=== PATIENT | female | born 1940 ===

== ENCOUNTER 2018-12-25 10:02 | Outpatient (CLI) | payer MEDICARE | END 2018-12-25 10:03 | disposition home or self-care (01) | LOC: C.PAT 10:02 | DX: I65.21 Occlusion and stenosis of right carotid artery (principal); I65.02 Occlusion and stenosis of left vertebral artery ==

== ENCOUNTER 2019-01-20 21:35 | Inpatient (IN) | payer MEDICARE ==
[2019-01-20 21:35] VITALS: BMI 27.3
--- NOTE | 2019-01-20 22:26 | C.PDOC ---
History Of Present Illness 78 year old female with Hx of carotid stenosis, HTN, diabetes, and syncope, sent in by neurologist for evaluation. Patient with Hx of recurrent syncope, recently admitted to another institution where she had an MRA that showed severe stenosis of the r internal carotid. Denies headache, pain, fever, or symptoms at this time. Patient due for procedure, of note patient had negative CT head 1 month ago. Time Seen by Provider: 01/20/19 21:55 Chief Complaint (Nursing): Weakness/Neurological Deficit History Per: Patient History/Exam Limitations: no limitations Onset/Duration Of Symptoms: Days Current Symptoms Are (Timing): Still Present Seizure Or Post-ictal Symptoms: None Recent travel outside of the [place]: No Past Medical History Reviewed: Historical Data, Nursing Documentation, Vital Signs Vital Signs: Last Vital Signs Temp 97.4 F L 01/20/19 21:45 Pulse 74 01/20/19 21:45 Resp 18 01/20/19 21:45 BP 183/80 H 01/20/19 21:45 Pulse Ox 100 01/20/19 21:45 - Medical History PMH: CAD, Diabetes, HTN, Hypercholesterolemia Denies: Chronic Kidney Disease Surgical History: CABG, Cholecystectomy - [facility] Procedures MEASURE OF CARDIAC SAMPL & PRESSURE, L HEART, PERC APPROACH (01/14/17) PLAIN RADIOGRAPHY OF RIGHT AND LEFT HEART USING OTH CONTRAST (01/14/17) Family History: States: Unknown Family Hx - Social History Hx Alcohol Use: No Hx Substance Use: No Review Of Systems Constitutional: Negative for: Fever, Chills Cardiovascular: Negative for: Chest Pain, Palpitations Respiratory: Negative for: Cough, Shortness of Breath Gastrointestinal: Negative for: Nausea, Vomiting Neurological: Negative for: Weakness, Numbness, Headache, Dizziness Physical Exam - Physical Exam Appears: Non-toxic Skin: Normal Color, Warm, Dry Head: Atraumatic, Normacephalic Eye(s): bilateral: Normal Inspection, PERRL, EOMI Oral Mucosa: Moist Neck: Normal, Supple Chest: Symmetrical, No Tenderness Cardiovascular: Rhythm Regular Respiratory: Normal Breath Sounds, No Rales, No Rhonchi, No Wheezing Gastrointestinal/Abdominal: Soft, No Tenderness Extremity: Normal ROM (x4) Neurological/Psych: Oriented x3, Normal Speech, Normal Cranial Nerves, Normal Motor, Normal Sensation, Other (No focal deficit) ED Course And Treatment - Laboratory Results Result Diagrams: 01/20/19 22:31 01/20/19 22:31 O2 Sat by Pulse Oximetry: 100 (Room air) Pulse Ox Interpretation: Normal Medical Decision Making Medical Decision Making: reccuent syncope 2/2 ica stenosis- labs imaging pending previous ct neg. case disucssed with Dr. Miller who requests MRI and admission. ekg nsr [address] t wave changes accepted dr davenport. Disposition - Disposition Disposition: HOSPITALIZED Disposition Time: 23:00 Condition: STABLE - Clinical Impression Clinical Impression: Dizziness - Scribe Statement The provider has reviewed the documentation as recorded by the Scribe Zacarias Herrmann All medical record entries made by the Scribe were at my direction and personally dictated by me. I have reviewed the chart and agree that the record accurately reflects my personal performance of the history, physical exam, medical decision making, and the department course for this patient. I have also personally directed, reviewed, and agree with the discharge instructions and disposition. Decision To Admit - Pt Status Changed To: Hospital Disposition Of: Inpatient - Admit Certification Admit to Inpatient:: After my assessment, the patient will require hospitalization for at least two midnights. This is because of the severity of symptoms shown, intensity of services needed, and/or the medical risk in this patient being treated as an outpatient. - InPatient: Physician Admission Certification: I certify that this patient requires 2 or more midnights of care for the following reason:: need mri neuro evla - . Bed Request Type: Telemetry Admitting Physician: [place] Patient Diagnosis: Syncope
[2019-01-20 22:35] LABS: BASO % 0.7 % (0.0-2.0); EOS # 0.3 K/uL (0.0-0.7); EOS % 3.6 % (0.0-4.0); HEMOGLOBIN 11.7 g/dL (11.0-16.0); LYMPH # 1.5 K/uL (1.0-4.3); LYMPH % 21.3 % (20.0-40.0); MEAN CELL VOLUME 88.7 fL (81.0-99.0); MEAN CORPUSCULAR HEMOGLOBIN 29.2 pg (27.0-31.0); MEAN CORPUSCULAR HGB CONC 32.9 g/dL (33.0-37.0); MONO # 0.3 K/uL (0.0-0.8); MONO % 4.8 % (0.0-10.0); NEUT # 5.1 K/uL (1.8-7.0); NEUT % 69.6 % (50.0-75.0); RBC 4.01 Mil/uL (3.80-5.20); RED CELL DISTRIBUTION WIDTH 13.8 % (11.5-14.5); WHITE BLOOD COUNT 7.3 K/uL (4.8-10.8)
[2019-01-20 22:43] LABS: PROTHROMBIN TIME 11.3 SECONDS (9.7-12.2)
[2019-01-20 22:47] LABS: ALB/GLOB RATIO 1.9 (1.0-2.1); ALBUMIN 4.6 g/dL (3.5-5.0); ALT/SGPT 31 U/L (9-52); AST/SGOT 25 U/L (14-36); BLOOD UREA NITROGEN 26 mg/dL (7-17); CALCIUM 10.3 mg/dl (8.6-10.4); GFR NON-AFRICAN AMERICAN 43
[2019-01-21] MEDS: (Novolog) Insulin Aspart, Recombinant 100 u/ml 10 ml vial SC SCH ×5 (00:05→22:21)
[2019-01-21 00:28] LABS: SQUAMOUS EPITHIAL < 1 /hpf (0-5); URINE BILIRUBIN NEGATIVE (NEGATIVE); URINE BLOOD NEGATIVE (NEGATIVE); URINE CLARITY Clear (Clear); URINE COLOR Yellow (YELLOW); URINE GLUCOSE (UA) NORMAL (Normal); URINE LEUKOCYTE ESTERASE TRACE Leu/uL (Negative); URINE PROTEIN NEGATIVE (NEGATIVE); URINE UROBILINOGEN NORMAL mg/dL (0.2-1.0)
--- NOTE | 2019-01-21 09:30 | RAD ---
Chest x-ray single frontal view History: Chest pain. Comparison 12/25/2018 Findings: Mild venous congestion. Right hilar prominence. Status post median sternotomy and CABG. Atherosclerotic calcification at the aortic knob. Heart size within normal limits. Degenerative changes in the spine and shoulders. Impression: Mild venous congestion. Right hilar prominence. Status post median sternotomy and CABG. Atherosclerotic calcification at the aortic knob.
[2019-01-21] MEDS ORDERED: Home Med 1 UNIT (Pravastatin Sodium [Pravastatin Sodium] 40 MG) PO SCH (10:00)
[2019-01-21] MEDS ORDERED: Home Med 1 UNIT (Metformin [Glucophage] 1,000 MG) PO SCH (10:00)
[2019-01-21] MEDS ORDERED: Gadodiamide 287 MG/ML VIAL (15ML) IV ONE (11:15)
[2019-01-21] MEDS: Enoxaparin 40 mg Syringe SC SCH (11:37)
--- NOTE | 2019-01-21 12:01 | CARD ---
APPROVED REPORT Date of service: 01/20/2019 EKG Measurement Heart [id number] <Conclusion> Normal sinus rhythm Possible Left atrial enlargement Incomplete right bundle branch block Possible Inferior infarct, age undetermined Abnormal ECG
--- NOTE | 2019-01-21 13:13 | MRI ---
Date of service: 01/21/2019 PROCEDURE: MRI BRAIN WITH AND WITHOUT CONTRAST HISTORY: Syncope COMPARISON: None available. TECHNIQUE: Multiplanar, multisequence MR images of the brain were obtained with and without intravenous contrast enhancement. 10 ml Omniscan was injected intravenously. FINDINGS: HEMORRHAGE: None DWI: No evidence of an acute or early subacute infarction. BRAIN PARENCHYMA: There are mild chronic microangiopathic changes. There is no mass, mass effect or abnormal extra-axial fluid collection. There is no territorial infarction. There is an empty sella. The midline sagittal structures are normal. ENHANCEMENT: No abnormal intracranial enhancement. VENTRICLES: There is mild age-related global parenchymal volume loss and proportionate enlargement of the ventricles and cortical sulci. CRANIUM: There is normal bone marrow signal pattern. ORBITS: Grossly unremarkable. PARANASAL SINUSES/MASTOIDS: Mild mucosal thickening in the paranasal sinuses and trace mastoid effusions. VASCULAR SYSTEM: There are normal signal voids in the larger intracranial arteries. OTHER FINDINGS: None . IMPRESSION: 1. No acute intracranial abnormality. 2. Mild chronic microangiopathic changes and mild age-related global parenchymal volume loss.
--- NOTE | 2019-01-21 13:34 | CP.PCM.PN ---
Subjective - Date & Time of Evaluation Date of Evaluation: 01/21/19 Time of Evaluation: 12:00 - Subjective Subjective: [facility] Dr.Farkas Dr.Arcot Dr.Turkell-Parrella Dr.Liff Nazario Consolmao MSNA,AGNP-BC,BUSINESS [employer] REPORT DEVELOPER Mrs.Luisa Arango is a 78 year old female with PmHx.significant for CAD,[place] x2, s/p CABGx4 vessels December 2017, HTN, carotid stenosis, recurrent syncope, diabetes, hypercholesterolemia who presents to the ED for c/o of dizziness, syncopal/near syncope. Pt was admitted to [facility] 12/14/18 for syncope/sever vertigo. the MRI/MRA demonstrated high grade stenosis of the origin of the right internal carotid arteryestimated at 80% using NASCET criteria, mild stenosis of the right M1 middle cerebral artery. On this admission the MRI of the brain does not demonstrate acute infarct. The patient denies dizziness, weakness, numbness or tingling. All symptoms have resolved. Pt was scheduled for carotid artery stent 01/21/19 but the machine was not working, upon notifying the family I was told pt was not feeling well was c/o dizziness and falling asleep while driving. I advised them to go to the ED. is scheduled for FERNANDO 01/22 @12noon. Objective - Vital Signs/Intake and Output Vital Signs (last 24 hours): Temp Pulse Resp BP Pulse Ox 98.3 F 60 20 160/67 H 96 01/21/19 08:57 01/21/19 08:57 01/21/19 08:57 01/21/19 08:57 01/21/19 08:57 - Medications Medications: Current Medications Aspirin (Aspirin Chewable) 81 mg PO DAILY [facility] Last Admin: 01/21/19 12:54 Dose: 81 mg Clonidine HCl (Catapres) 0.1 mg PO DAILY [facility] Last Admin: 01/21/19 11:36 Dose: 0.1 mg Clopidogrel Bisulfate (Plavix) 75 mg PO DAILY [facility] Last Admin: 01/21/19 11:35 Dose: 75 mg Enoxaparin Sodium (Lovenox) 40 mg SC DAILY [facility] Last Admin: 01/21/19 11:37 Dose: 40 mg Ferrous Sulfate (Feosol) 325 mg PO DAILY [facility] Last Admin: 01/21/19 11:38 Dose: 325 mg Glimepiride (Amaryl) 4 mg PO DAILY [facility] Last Admin: 01/21/19 12:54 Dose: 4 mg Home Med (Pravastatin Sodium [Pravastatin Sodium]) 40 mg PO DAILY [facility] Insulin Aspart (Novolog) 0 unit SC ACHS [facility]; Protocol Last Admin: 01/21/19 12:44 Dose: Not Given Isosorbide Mononitrate (Imdur) 60 mg PO DAILY [facility] Last Admin: 01/21/19 11:36 Dose: 60 mg Metformin HCl (Glucophage) [facility] Last Admin: 01/21/19 12:54 Dose: 1,000 mg Torsemide (Demadex) 20 mg PO DAILY [facility] Last Admin: 01/21/19 11:36 Dose: 20 mg - Labs Labs: 01/20/19 22:31 01/20/19 22:31 PT 11.3 SECONDS (9.7-12.2) 01/20/19 22:31 INR 1.0 01/20/19 22:31 APTT 35 SECONDS (21-34) H 01/20/19 22:31 - Constitutional Appears: Well - Head Exam Head Exam: ATRAUMATIC - Eye Exam Eye Exam: EOMI, Normal appearance, PERRL Pupil Exam: NORMAL ACCOMODATION - Neck Exam Neck Exam: Full ROM - Rectal Exam Rectal Exam: Deferred - Neurological Exam Neurological Exam: Alert, Awake, CN II-XII Intact, Oriented x3 Neuro motor strength exam: Left Upper Extremity: 5, Right Upper Extremity: 5, Left Lower Extremity: 5, Right Lower Extremity: 5 - Psychiatric Exam Psychiatric exam: Normal Affect, Normal Mood Assessment and Plan - Assessment and Plan (Free Text) Assessment: NEUROLOGICAL EXAM General: awake,sitting up on side of bed, Mental Status: alert, and orientedto person, place, and time, follows commands, regards on both sides Speech: no dysarthria, speech fluent Cranial Nerves: PERRL, BTT bilaterally, EOMI, no facial asymmetry, tongue mid line Motor: 5/5 left and right upper and lower extremities Sensory: intact bilaterally Coordination: [id number] no dysmetria Gait: deferred is a 78 year old female admitted for syncope/near syncope, dizziness. MRI brain does not demonstrate an acute infarct. 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 Plan: 1. Pt NPO after MN 01/21/19 2. Please increase asprin to 325mg today 3. Please continue Plavix daily 4. Please administer Plavix and aspirin in AM with sip of water. 5. Please consult for cardiac clearance for FERNANDO 01/22/19 6. If we can be of further assistance please contact us 45 minutes spent assessing the pt and creating plan
--- NOTE | 2019-01-21 17:47 | CP.PCM.PCO ---
Physician Communication Note - Physician Communication Note Physician Communication Note: OK with Carotid stenting [facility]
--- NOTE | 2019-01-21 21:17 | CP.PCM.HP ---
Present on Admission - Present on Admission Any Indicators Present on Admission: No Past Patient History - Past Medical History & Family History Past Medical History?: Yes - Past Social History Smoking Status: Never Smoked - CARDIAC Hx Cardiac Disorders: Yes Hx Hypercholesterolemia: Yes Hx Hypertension: Yes - PULMONARY Hx Respiratory Disorders: Yes - NEUROLOGICAL Hx Neurological Disorder: Yes Hx Syncope: Yes - HEENT Hx HEENT Problems: No - RENAL Hx Chronic Kidney Disease: No - ENDOCRINE/METABOLIC Hx Diabetes Mellitus Type 2: Yes - HEMATOLOGICAL/ONCOLOGICAL Hx Blood Disorders: No - INTEGUMENTARY Hx Dermatological Problems: No - MUSCULOSKELETAL/RHEUMATOLOGICAL Hx Falls: No - GASTROINTESTINAL Hx Gastrointestinal Disorders: No - GENITOURINARY/GYNECOLOGICAL Hx Genitourinary Disorders: No - PSYCHIATRIC Hx Substance Use: No - SURGICAL HISTORY Hx Cholecystectomy: Yes Hx Coronary Artery Bypass Graft: Yes - ANESTHESIA Hx Anesthesia: Yes Hx Anesthesia Reactions: No Meds Allergies/Adverse Reactions: Allergies Allergy/AdvReac Type Severity Reaction Status Date / Time iodine Allergy Intermediate RASH Verified 01/20/19 21:49 Results - Vital Signs Recent Vital Signs: Last Vital Signs Temp 97.9 F 01/21/19 15:00 Pulse 64 01/21/19 17:30 Resp 20 01/21/19 15:00 BP 130/69 01/21/19 15:00 Pulse Ox 96 01/21/19 15:00 - Labs Result Diagrams: 01/20/19 22:31 01/20/19 22:31 Labs: Laboratory Results - last 24 hr 01/20/19 01/20/19 01/20/19 22:31 22:31 22:31 WBC 7.3 RBC 4.01 Hgb 11.7 Hct 35.5 MCV 88.7 MCH 29.2 MCHC 32.9 L RDW 13.8 Plt Count 238 MPV 8.0 Neut % (Auto) 69.6 Lymph % (Auto) 21.3 Richardson % (Auto) 4.8 Eos % (Auto) 3.6 Baso % (Auto) 0.7 Neut # (Auto) 5.1 Lymph # (Auto) 1.5 Richardson # (Auto) 0.3 Eos # (Auto) 0.3 Baso # (Auto) 0.0 PT 11.3 INR 1.0 APTT 35 H Sodium 137 Potassium 3.7 Chloride 95 L Carbon Dioxide 30 Anion Gap 15 BUN 26 H Creatinine 1.2 Est GFR ( Amer) 53 Est GFR (Non-Af Amer) 43 POC Glucose (mg/dL) Random Glucose 141 H Calcium 10.3 Total Bilirubin 0.5 AST 25 ALT 31 Alkaline Phosphatase 65 Troponin I < 0.0120 Total Protein 7.0 Albumin 4.6 Globulin 2.4 Albumin/Globulin Ratio 1.9 Urine Color Urine Clarity Urine pH Ur Specific Lyndon Urine Protein Urine Glucose (UA) Urine Ketones Urine Blood Urine Nitrate Urine Bilirubin Urine Urobilinogen Ur Leukocyte Esterase Urine WBC (Auto) Urine RBC (Auto) Ur Squamous Epith Cells Hyaline Casts 01/21/19 01/21/19 00:16 17:05 WBC RBC Hgb Hct MCV MCH MCHC RDW Plt Count MPV Neut % (Auto) Lymph % (Auto) Richardson % (Auto) Eos % (Auto) Baso % (Auto) Neut # (Auto) Lymph # (Auto) Richardson # (Auto) Eos # (Auto) Baso # (Auto) PT INR APTT Sodium Potassium Chloride Carbon Dioxide Anion Gap BUN Creatinine Est GFR ( Amer) Est GFR (Non-Af Amer) POC Glucose (mg/dL) 163 H Random Glucose Calcium Total Bilirubin AST ALT Alkaline Phosphatase Troponin I Total Protein Albumin Globulin Albumin/Globulin Ratio Urine Color Yellow Urine Clarity Clear Urine pH 5.0 Ur Specific Lyndon 1.005 Urine Protein Negative Urine Glucose (UA) Normal Urine Ketones Negative Urine Blood Negative Urine Nitrate Negative Urine Bilirubin Negative Urine Urobilinogen Normal Ur Leukocyte Esterase Trace Urine WBC (Auto) 1 Urine RBC (Auto) < 1 Ur Squamous Epith Cells < 1 Hyaline Casts 6-10 H
--- NOTE | 2019-01-21 21:27 | CP.PCM.CON ---
History of Present Illness - History of Present Illness History of Present Illness: 78 year old female with Hx of carotid stenosis, HTN, diabetes, and syncope, sent in by neurologist for evaluation. Patient with Hx of recurrent syncope, recently admitted to another institution where she had an MRA that showed severe stenosis of the r internal carotid. Denies headache, pain, fever, or symptoms at this time. Patient due for procedure, of note patient had negative CT head 1 month ago. She had 2 spells of Syncope, losing consciousness while on the couch and waking up after few hours. She doesn't really know what happens during this period and as she does not share her bedroom, there are no witnesses. Her tests showed ICA stenosis and she will have a surgery in the Morning. Impression of the MRI Brain is showing; IMPRESSION of MRI Brain: 1. No acute intracranial abnormality. 2. Mild chronic microangiopathic changes and mild age-related global parenchymal volume loss. Time Seen by Provider: 01/20/19 21:55 Chief Complaint (Nursing): Weakness/Neurological Deficit History Per: Patient History/Exam Limitations: no limitations Onset/Duration Of Symptoms: Days Current Symptoms Are (Timing): Still Present Seizure Or Post-ictal Symptoms: None Recent travel outside of the [place]: No Social: She is a and has 2 children, one in [place] and the other lives with her in the same building next door. Both of her children are males and are . She is very active and works in [employer] in [facility], in the [employer] department. She starts taking care of herself every year after the end of the Football Season. Past Medical History Reviewed: Historical Data, Nursing Documentation, Vital Signs Vital Signs: Last Vital Signs Temp 97.4 F L 01/20/19 21:45 Pulse 74 01/20/19 21:45 Resp 18 01/20/19 21:45 BP 183/80 H 01/20/19 21:45 Pulse Ox 100 01/20/19 21:45 - Medical History PMH: CAD, Diabetes, HTN, Hypercholesterolemia Denies: Chronic Kidney Disease Surgical History: 4 vessels CABG at [facility] in [facility], she has a history of having 2 cardiac stents in the past, prior to her CABG Surgery. The vein was taken from her left Upper Extremity. Cholecystectomy - [facility] Procedures. MEASURE OF CARDIAC SAMPL & PRESSURE, L HEART, PERC APPROACH (01/14/17) PLAIN RADIOGRAPHY OF RIGHT AND LEFT HEART USING OTH CONTRAST (01/14/17) Family History: States: Unknown Family Hx - Social History Hx Alcohol Use: No Hx Substance Use: No Review Of Systems Constitutional: Negative for: Fever, Chills Cardiovascular: Negative for: Chest Pain, Palpitations Respiratory: Negative for: Cough, Shortness of Breath Gastrointestinal: Negative for: Nausea, Vomiting Neurological: Negative for: Weakness, Numbness, Headache, Dizziness Physical Exam - Physical Exam Appears: Non-toxic Skin: Normal Color, Warm, Dry Head: Atraumatic, Normacephalic Eye(s): bilateral: Normal Inspection, PERRL, EOMI Oral Mucosa: Moist Neck: Normal, Supple Chest: Symmetrical, No Tenderness Cardiovascular: Rhythm Regular Respiratory: Normal Breath Sounds, No Rales, No Rhonchi, No Wheezing Gastrointestinal/Abdominal: Soft, No Tenderness Extremity: Normal ROM (x4) Neurological/Psych: Oriented x3, Normal Speech, Normal Cranial Nerves, Normal Motor, Normal Sensation, Other (No focal deficit) ED Course And Treatment - Laboratory Results Result Diagrams: 01/20/19 22:31 01/20/19 22:31 O2 Sat by Pulse Oximetry: 100 (Room air) Pulse Ox Interpretation: Normal Medical Decision Making Medical Decision Making: reccuent syncope 2/2 ica stenosis- labs imaging pending previous ct neg. case disucssed with Dr. Miller, her neurologist in [facility], who requests MRI and admission. ekg nsr [address] t wave changes accepted dr cat. Disposition - Disposition Disposition: HOSPITALIZED Disposition Time: 23:00 Condition: STABLE - Clinical Impression Clinical Impression: Dizziness, bifrontal headache, throbbing, with photophobia, sonophobia, occurr ing few hours a day, most of the week. She has a history of snoring at night when sleeping and wakes up tired. R/O Seizures, R/O sleep Apnea. Past Patient History - Past Medical History & Family History Past Medical History?: Yes - Past Social History Smoking Status: Never Smoked - CARDIAC Hx Cardiac Disorders: Yes Hx Hypercholesterolemia: Yes Hx Hypertension: Yes - PULMONARY Hx Respiratory Disorders: Yes - NEUROLOGICAL Hx Neurological Disorder: Yes Hx Syncope: Yes - HEENT Hx HEENT Problems: No - RENAL Hx Chronic Kidney Disease: No - ENDOCRINE/METABOLIC Hx Diabetes Mellitus Type 2: Yes - HEMATOLOGICAL/ONCOLOGICAL Hx Blood Disorders: No - INTEGUMENTARY Hx Dermatological Problems: No - MUSCULOSKELETAL/RHEUMATOLOGICAL Hx Falls: No - GASTROINTESTINAL Hx Gastrointestinal Disorders: No - GENITOURINARY/GYNECOLOGICAL Hx Genitourinary Disorders: No - PSYCHIATRIC Hx Substance Use: No - SURGICAL HISTORY Hx Cholecystectomy: Yes Hx Coronary Artery Bypass Graft: Yes - ANESTHESIA Hx Anesthesia: Yes Hx Anesthesia Reactions: No Meds Allergies/Adverse Reactions: Allergies Allergy/AdvReac Type Severity Reaction Status Date / Time iodine Allergy Intermediate RASH Verified 01/20/19 21:49 - Medications Medications: Current Medications Aspirin (Aspirin) 325 mg PO DAILY [facility] Clopidogrel Bisulfate (Plavix) 75 mg PO DAILY [facility] Last Admin: 01/21/19 11:35 Dose: 75 mg Enoxaparin Sodium (Lovenox) 40 mg SC DAILY [facility] Last Admin: 01/21/19 11:37 Dose: 40 mg Ferrous Sulfate (Feosol) 325 mg PO DAILY [facility] Last Admin: 01/21/19 11:38 Dose: 325 mg Glimepiride (Amaryl) 4 mg PO DAILY [facility] Last Admin: 01/21/19 12:54 Dose: 4 mg Insulin Aspart (Novolog) 0 unit SC [facility]; Protocol Last Admin: 01/21/19 18:04 Dose: 1 u Isosorbide Mononitrate (Imdur) 60 mg PO DAILY [facility] Last Admin: 01/21/19 11:36 Dose: 60 mg Losartan Potassium (Cozaar) 25 mg PO DAILY [facility] Last Admin: 01/21/19 14:54 Dose: 25 mg [facility] Last Admin: 01/21/19 18:06 Dose: Not Given Rosuvastatin Calcium (Crestor) 5 mg PO [facility] Torsemide (Demadex) 20 mg PO DAILY [facility] Last Admin: 01/21/19 11:36 Dose: 20 mg Physical Exam - Neurological Exam Additional comments: Mental status: Awake, alert, oriented X 3 Fluent coherent speech Normal Memory x 3 Very smart and has a sense of humor. Cranial Nerves II to XII: No Deficits Motor: Normal tone power and muscle bulk DTR: 0/4 bilaterally Cerebellar: Normal tests: FNT, HST and is able to walk properly, tandem walking is hard to perform, apparently due her diabetic peripheral neuropathy. Sensory: Reduced sensation peripherally in a glove and stoke pattern in both Upper and Lower extremities, this looks due to D.M tature and gait Normal. Results - Vital Signs Recent Vital Signs: Last Vital Signs Temp 97.9 F 01/21/19 15:00 Pulse 64 01/21/19 17:30 Resp 20 01/21/19 15:00 BP 130/69 01/21/19 15:00 Pulse Ox 96 01/21/19 15:00 - Labs Result Diagrams: 01/20/19 22:31 01/20/19 22:31 Labs: Laboratory Results - last 24 hr 01/20/19 01/20/19 01/20/19 22:31 22:31 22:31 WBC 7.3 RBC 4.01 Hgb 11.7 Hct 35.5 MCV 88.7 MCH 29.2 MCHC 32.9 L RDW 13.8 Plt Count 238 MPV 8.0 Neut % (Auto) 69.6 Lymph % (Auto) 21.3 [place] % (Auto) 4.8 Eos % (Auto) 3.6 Baso % (Auto) 0.7 Neut # (Auto) 5.1 Lymph # (Auto) 1.5 [place] # (Auto) 0.3 Eos # (Auto) 0.3 Baso # (Auto) 0.0 PT 11.3 INR 1.0 APTT 35 H Sodium 137 Potassium 3.7 Chloride 95 L Carbon Dioxide 30 Anion Gap 15 BUN 26 H Creatinine 1.2 Est GFR ( Amer) 53 Est GFR (Non-Af Amer) 43 POC Glucose (mg/dL) Random Glucose 141 H Calcium 10.3 Total Bilirubin 0.5 AST 25 ALT 31 Alkaline Phosphatase 65 Troponin I < 0.0120 Total Protein 7.0 Albumin 4.6 Globulin 2.4 Albumin/Globulin Ratio 1.9 Urine Color Urine Clarity Urine pH Ur Specific [place] Urine Protein Urine Glucose (UA) Urine Ketones Urine Blood Urine Nitrate Urine Bilirubin Urine Urobilinogen Ur Leukocyte Esterase Urine WBC (Auto) Urine RBC (Auto) Ur Squamous Epith Cells Hyaline Casts 01/21/19 01/21/19 00:16 17:05 WBC RBC Hgb Hct MCV MCH MCHC RDW Plt Count MPV Neut % (Auto) Lymph % (Auto) [place] % (Auto) Eos % (Auto) Baso % (Auto) Neut # (Auto) Lymph # (Auto) [place] # (Auto) Eos # (Auto) Baso # (Auto) PT INR APTT Sodium Potassium Chloride Carbon Dioxide Anion Gap BUN Creatinine Est GFR ( Amer) Est GFR (Non-Af Amer) POC Glucose (mg/dL) 163 H Random Glucose Calcium Total Bilirubin AST ALT Alkaline Phosphatase Troponin I Total Protein Albumin Globulin Albumin/Globulin Ratio Urine Color Yellow Urine Clarity Clear Urine pH 5.0 Ur Specific [place] 1.005 Urine Protein Negative Urine Glucose (UA) Normal Urine Ketones Negative Urine Blood Negative Urine Nitrate Negative Urine Bilirubin Negative Urine Urobilinogen Normal Ur Leukocyte Esterase Trace Urine WBC (Auto) 1 Urine RBC (Auto) < 1 Ur Squamous Epith Cells < 1 Hyaline Casts 6-10 H Assessment & Plan (1) Syncope Assessment and Plan: R/O seizures, R/O TIA, R/o carotid stenosis as a factor. Will Get EEG to assess for seizures. MRI Brain is not showing CVA or serious Intracranial findings that can threaten her life. Status: Acute (2) Carotid stenosis, right Assessment and Plan: She will have a procedure in AM Status: Acute (3) Chest pain Assessment and Plan: Cardiology is ruling out any cardiac causes. Status: Acute (4) DVT prophylaxis Status: Acute (5) Lower extremity pain Assessment and Plan: Right side carotid artery stenosis. LS Radiculopathy is to be ruled out. Work up as MRI of the Lumbar Sacral area will be performed later on, may be as an out patient. Status: Acute (6) Non-STEMI (non-ST elevated myocardial infarction) Status: Acute (7) Peripheral arterial disease Assessment and Plan: Work Up is in progress. Status: Acute (8) Prophylactic measure Status: Acute (9) Seizures Assessment and Plan: It needs to be ruled out by an EEG and observation. Status: Acute (10) TIA (transient ischemic attack) Assessment and Plan: Factors are D.M , high lipid profile, cardiac problems including CABG, Cardiac ischemia, h/o coronary artery stents, Right side Carotid Artery stenosis Observation is needed and F/U Cardiac consult. Status: Acute (11) Hypnic headache Assessment and Plan: This might be due to snoring at night time due to possible sleep apnea A sleep study is recommended after discharge. Status: Acute
--- NOTE | 2019-01-22 03:43 | CON ---
DATE: 01/21/2019 CARDIOLOGY CONSULT REASON FOR CONSULTATION: Preoperative clearance prior to carotid artery stenting. HISTORY OF PRESENT ILLNESS: The patient is a 78-year-old female who has history of coronary artery disease, underwent coronary artery bypass surgery 2 years ago at [facility], known to have significant carotid stenosis and was given clearance by her expanded duty dental assistant, Dr. Hardy for carotid stenting. The patient was admitted because of weakness and what was described as neurological deficit. The patient herself reported headache, dizziness as well as at times difficulty articulating her speech. The patient denies any retrosternal chest pain or shortness of breath, and is unaware of any history of coronary intervention following her open heart surgery 2 years ago. SOCIAL HISTORY: Nonsmoker, nondrinker. MEDICATIONS: Amaryl 4 mg once a day, aspirin 325 mg once a day, Cozaar 25 mg once a day, Crestor 5 mg once a day, Demadex 20 mg once a day, Feosol 1 tablet daily, Glucophage 1 g twice a day, Imdur 60 mg once a day, Lovenox 40 mg subcutaneous once a day, and Plavix 75 mg once a day. REVIEW OF SYSTEMS: No syncope. No retrosternal chest pain. No recent fall. No nausea or vomiting. No productive cough. PHYSICAL EXAMINATION: GENERAL: The patient is an elderly female who does not appear to be in acute distress. VITAL SIGNS: Blood pressure 160/67, heart rate 60, temperature 98.3, and respirations 20. HEENT: Normocephalic. CHEST: Clear. HEART: S1 and S2, regular. ABDOMEN: Soft. EXTREMITIES: No edema. LABORATORY DATA: Today's SMA-7: Sodium 137, potassium 3.7, chloride 95, CO2 of 30, glucose 141, BUN 26, creatinine 1.2. Troponin is within normal limits. INR is 1, PTT 35. Hemoglobin, hematocrit, white count, and platelet count are within normal limit. EKG revealed sinus rhythm at a rate of 60, incomplete right bundle branch block, possible old inferior infarct. Echocardiographic study performed last month revealed normal ejection fraction, borderline dilated left atrium, and mild pulmonary hypertension. Brain MRI during this admission revealed no acute intracranial abnormality, mild chronic microangiopathic changes. Neck MRA last month revealed severe stenosis in the proximal right internal carotid artery with poststenotic dilatation. Head MRA last month unremarkable. ASSESSMENT: 1. Severe right internal carotid artery stenosis with poststenotic dilatation. 2. Coronary artery disease, status post coronary artery bypass surgery 2 years ago. 3. Hypertension and diabetes mellitus. RECOMMENDATIONS: Continue aspirin 325 mg once a day, Crestor 5 mg once a day, Cozaar 25 mg once a day, Demadex 20 mg once a day, Feosol 1 tablet daily, Imdur 60 mg once a day, Plavix 75 mg once a day. The patient can undergo carotid artery stenting from the cardiac point of view. Kuldip Vincent MD
--- NOTE | 2019-01-22 05:15 | HP ---
CHIEF COMPLAINT: Weakness and dizziness. HISTORY OF PRESENT ILLNESS: This is a 78-year-old female with history of type 2 diabetes, hypertension, coronary artery disease, status post CABG for four vessels a year ago. The patient was admitted at [facility] last week with a CVA. The patient had an MRA done, and the MRA showed severe stenosis of right internal carotid artery. The patient is still weak, dizzy. She feels like passing out. The patient needs carotid endarterectomy as she is admitted. At the moment, she denies any weakness, tingling or numbness of any of the extremities. She has dizziness, weakness. She has vertigo. She denies any paresthesia, but she has nausea. She has blurring of vision. She denies any fever, chills, or rigors. She denies any polyuria, polydipsia, or polyphagia. She denies any history of hematuria or pyuria. She denies any sneezing, itchy eyes, or itchy nose. She denies any history of trauma, fall, or loss of consciousness. There is no history of seizure-like activity. There is no history of joint pain or hip pain. PAST MEDICAL HISTORY: Coronary artery disease, status post CABG; diabetes; hypertension; hyperlipidemia; cholecystectomy. SOCIAL HISTORY: She is nonsmoker, non-EtOH user. CURRENT MEDICATIONS: Imdur, aspirin, Amaryl, iron sulfate, Plavix, Pravachol, Glucophage, clonidine, and torsemide. PHYSICAL EXAMINATION: GENERAL: This is an elderly female who is not in any acute distress. VITAL SIGNS: Blood pressure 130/69, pulse 62, respiratory rate 20, and temperature 97.9. SKIN: Senile turgor. No bruises. No purpura. No petechiae. No ecchymosis. HEENT: Atraumatic and normocephalic. Negative pallor. Negative jaundice. Extraocular movements are intact. NECK: Supple. No JVD. No lymph nodes. No thyromegaly. CHEST WALL: Bilateral symmetrical expansion. There is a midline scar, clean, healed. No masses. No nipple discharge. CARDIOVASCULAR SYSTEM: PMI not localized. S1 and S2 plus S3 positive. LUNGS: Bilaterally clear. No rales. No rhonchi. Has normal focal crepitus. ABDOMEN: Soft and nontender. Bowel sounds are positive. RECTAL: Refused. PELVIC: Refused. EXTREMITIES: No clubbing, cyanosis, or edema. CENTRAL NERVOUS SYSTEM: Awake, alert, and oriented x3. ASSESSMENT: 1. Right internal carotid artery stenosis, for carotid endarterectomy. 2. Coronary artery disease. 3. Type 2 diabetes. 4. Hypertension. PLAN: Admit. Detailed orders are written. Cardiac evaluation and possible carotid surgery. Monitor the patient. Los Davenport MD
[2019-01-22] MEDS: (Novolog) Insulin Aspart, Recombinant 100 u/ml 10 ml vial SC SCH ×3 (07:42→21:10)
[2019-01-22] MEDS: Nitroglycerin 2% Ointment Foilpak UD TOP SCH ×2 (07:56→17:51)
[2019-01-22 08:00] LABS: HDL CHOLESTEROL 47 mg/dL (30-70)
[2019-01-22 08:12] LABS: LDL CHOLESTEROL 91 mg/dL (0-129)
[2019-01-22 09:12] LABS: FOLATE > 20.0 ng/mL
[2019-01-22] MEDS: Enoxaparin 40 mg Syringe SC SCH (11:05)
[2019-01-22] MEDS ORDERED: Lidocaine/Epinephrine 1% 1:100000 10 ML IJ ONE (11:25)
[2019-01-22] MEDS ORDERED: SODIUM CHLORIDE 0.9% SC ONE ×3 (11:30)
[2019-01-22] MEDS ORDERED: SODIUM CHLORIDE 0.9% IV ONE ×4 (11:30→11:45)
[2019-01-22] MEDS ORDERED: HEPARIN SC ONE ×3 (11:30)
[2019-01-22] MEDS ORDERED: HEPARIN IV ONE ×4 (11:30→11:45)
--- NOTE | 2019-01-22 12:23 | PCM.IRPREO ---
Pre Procedure Note - History Proposed Procedure: Cerebral Angiogram- Endovascular treatment of ASHLEY stenosis with embolic protection device and possible balloon - Previous Medical/Surgical History Cardiac: Hypertension, ASHD/CAD, Previous OR Endocrine/Metabolic: Diabetes Neuro: TIA/CVA - Pre Procedure Were any radiologic studies performed in the last 12 months: Yes List of radiologic studies performed: MRA head/neck; MRI head Was medical management performed in the past 24 months: Yes List of medical management performed: plavix 75mg daily, Aspirin 325 mg daily Clinical indication for the procedure: symptomatic right internal carotid artery stenosis Have risks and benefits been explained to the patient: Yes (Planned procedure, benefits and risks including but not limited to groin infection, arterial occlusion, injury, renal impairment, CVA/brain hemorrhage resulting in irreversible neurological deficits and even were explained to in detail. She agrees to proceed and informed consent was obtained.) Risks and benefits been explained to the patient: yes Have alternatives to surgery explained to the patient as applicable: Yes - Allergies Allergies: Allergies iodine Allergy (Intermediate, Verified 01/20/19 21:49) RASH - Physical Exam Vital Signs: Vital Signs 01/22/19 01/22/19 01/22/19 08:29 10:47 11:06 Temperature 97.8 F Pulse Rate 64 81 75 Respiratory 20 Rate Blood Pressure 206/71 H 199/88 H 166/93 H O2 Sat by Pulse 99 Oximetry Mental Status: Alert & Oriented x3 Neuro: WNL Heart: WNL Lungs: WNL - Impression Impression: 78 year old female with significant risk factors for planned ASHLEY stent. Pt denies headache, dizziness, weakness/numbness to right and left upper and lower extremity - Date & Time Date: 01/22/19 Time: 12:30
[2019-01-22] MEDS ORDERED: Propofol 10 mg/ml Inj (20 ML) ONE (12:28)
[2019-01-22 12:38] LABS: RAPID PLASMA REAGIN NONREACTIVE (NONREACTIVE)
[2019-01-22] MEDS ORDERED: Nitroglycerin 50mg in D5W 50 MG/250 ML BOTTLE IV ONE (13:24)
--- NOTE | 2019-01-22 15:03 | PCM.OP ---
Operative Report - Operative Report Date of Surgery/Procedure: 01/22/19 Time of Surgery/Procedure: 01:50 Surgeon: Dr Mainor Miller Lining Ironer: Bam Talbot Anesthesia/Sedation: MAC by anesthesia Pre-Operative Diagnosis: symptomatic right internal carotid artery stenosis Post-Operative Diagnosis: Right ICA origin stenosis estimated 80% using NASCET criteria Indication for Surgery: repeated near syncopal episodes CTA demonstrating moderate to severe stenosis of the right ICA Operative Findings: right ICA stenosis Procedure/Operation Description: Diagnostic cerebral and cervical angiography right carotid stent placement. Access right groin with micro-puncture technique exchange for 9Fr sheath. Right carotid angioram performed confirming stenosis criteria. Moma device advanced for embolic protection followed by 70x30 carotid stent placement with post stent angioplasty. Groin closed with 8Fr angioseal. Estimated Blood Loss: 250 ml Blood Replaced: none Sponge/Instrument Count: all devices and catheters removed Drains: none right groin closed with 8Fr angioseal Complications: none. neuro assessment normal FULLER 5/5 b/l upper and lower; speech clear; stable throughout Specimen: none Discharge & Condition: Pt transferred to ICU report endorsed to message and delivery service pricer; neuro, neurovascular,VS, right groin(s/p access site) [id number] 0
[2019-01-22] MEDS: niCARdipine IV 25 MG in Sodium Chloride 0.9% 240 ML IV SCH ×2 (15:05→19:23)
[2019-01-22] MEDS ORDERED: Sodium Chloride 0.9% 500 ML IV ONE (16:20)
--- NOTE | 2019-01-22 17:34 | CP.PCM.CON ---
<Edward Welch - Last Filed: 01/22/19 18:48> History of Present Illness - History of Present Illness History of Present Illness: Critical care consult note for Dr. Dana Nichole Consult for s/p R carotid endarterectomy, POD # 0 78 F w/ PMHx of DM, HTN, CAD, s/p CABG (2018) presented to hospital for carotid endarterectomy. Pt had a CVA 1 week prior & MRA revealted severe stenosis of R internal carotid artery. Patient at present time is post op and states she does not have any complaints. Patient denies headaches, visin changes, nausea, vomiting, fevers, chills, chest pain, SOB, abdominal pain, nausea, vomiting, cough. Patient admitted for overnight surveillance. PMHx: DM, HTN, CAD, s/p CABG (2018) Meds: see EMR PSHx: CABG, previous cardiac stent, cholecystitis Allergies: Iodine SHx: denies tobacco, ETOH, illicit drug use FHx: father from [place], mother naturally Review of Systems - Constitutional Constitutional: absent: Chills, Fever, Weight Loss - EENT Eyes: absent: Blurred Vision, Discharge Ears: absent: Decreased Hearing Nose/Mouth/Throat: absent: Nasal Congestion, Dry Mouth - Cardiovascular Cardiovascular: absent: Chest Pain, Chest Pain at Rest, Dyspnea - Respiratory Respiratory: absent: Cough, Dyspnea, Snoring - Gastrointestinal Gastrointestinal: absent: Abdominal Pain, Diarrhea, Vomiting - Genitourinary Genitourinary: absent: Nocturia - Musculoskeletal Musculoskeletal: absent: Muscle Weakness, Stiffness - Integumentary Integumentary: absent: Acne, Lesions - Neurological Neurological: absent: Headaches, Syncope, Tingling - Psychiatric Psychiatric: absent: Confusion, Depression - Endocrine Endocrine: absent: Change in Body Appearance, Deepening of Voice Past Patient History - Past Medical History & Family History Past Medical History?: Yes - Past Social History Smoking Status: Never Smoked - CARDIAC Hx Cardiac Disorders: Yes Hx Hypercholesterolemia: Yes Hx Hypertension: Yes - PULMONARY Hx Respiratory Disorders: Yes - NEUROLOGICAL Hx Neurological Disorder: Yes Hx Syncope: Yes - HEENT Hx HEENT Problems: No - RENAL Hx Chronic Kidney Disease: No - ENDOCRINE/METABOLIC Hx Diabetes Mellitus Type 2: Yes - HEMATOLOGICAL/ONCOLOGICAL Hx Blood Disorders: No - INTEGUMENTARY Hx Dermatological Problems: No - MUSCULOSKELETAL/RHEUMATOLOGICAL Hx Falls: No - GASTROINTESTINAL Hx Gastrointestinal Disorders: No - GENITOURINARY/GYNECOLOGICAL Hx Genitourinary Disorders: No - PSYCHIATRIC Hx Substance Use: No - SURGICAL HISTORY Hx Cholecystectomy: Yes Hx Coronary Artery Bypass Graft: Yes - ANESTHESIA Hx Anesthesia: Yes Hx Anesthesia Reactions: No Meds Allergies/Adverse Reactions: Allergies Allergy/AdvReac Type Severity Reaction Status Date / Time iodine Allergy Intermediate RASH Verified 01/20/19 21:49 - Medications Medications: Current Medications Aspirin (Aspirin) 325 mg PO DAILY [facility] Last Admin: 01/22/19 09:20 Dose: 325 mg Clopidogrel Bisulfate (Plavix) 75 mg PO DAILY [facility] Last Admin: 01/22/19 09:20 Dose: 75 mg Enoxaparin Sodium (Lovenox) 40 mg SC DAILY [facility] Last Admin: 01/22/19 11:05 Dose: Not Given Ferrous Sulfate (Feosol) 325 mg PO DAILY [facility] Last Admin: 01/22/19 11:05 Dose: Not Given Glimepiride (Amaryl) 4 mg PO DAILY [facility] Last Admin: 01/22/19 11:05 Dose: Not Given Nicardipine HCl 25 mg/ Sodium (Chloride) 250 mls @ 50 mls/hr IV .Q5H [facility]; Protocol Last Titration: 01/22/19 16:20 Dose: 0 mg/hr, 0 mls/hr Insulin Aspart (Novolog) 0 unit SC ACHS [facility]; Protocol Last Admin: 01/22/19 17:27 Dose: Not Given Isosorbide Mononitrate (Imdur) 60 mg PO DAILY [facility] Last Admin: 01/22/19 11:05 Dose: Not Given Losartan Potassium (Cozaar) 50 mg PO DAILY [facility] Last Admin: 01/22/19 11:05 Dose: Not Given Metformin HCl (Glucophage) 1,000 mg PO BIDCC [facility] Last Admin: 01/22/19 11:05 Dose: Not Given Nitroglycerin (Nitro-Bid 2% Oint) 1 ea TOP Q6 [facility] Last Admin: 01/22/19 07:56 Dose: 1 ea Rosuvastatin Calcium (Crestor) 5 mg PO HS [facility] Last Admin: 01/21/19 22:23 Dose: 5 mg Torsemide (Demadex) 20 mg PO DAILY [facility] Last Admin: 01/22/19 11:05 Dose: Not Given Physical Exam - Constitutional Appears: Non-toxic, No Acute Distress - Head Exam Head Exam: NORMAL INSPECTION - Eye Exam Eye Exam: EOMI, Normal appearance - ENT Exam ENT Exam: Mucous Membranes Moist - Respiratory Exam Respiratory Exam: Clear to Auscultation Bilateral, NORMAL BREATHING PATTERN. absent: Rales, Rhonchi, Wheezes - Cardiovascular Exam Cardiovascular Exam: +S1, +S2. absent: Systolic Murmur - GI/Abdominal Exam GI & Abdominal Exam: Normal Bowel Sounds, Soft. absent: Firm, Guarding - Extremities Exam Extremities exam: Positive for: normal inspection. Negative for: calf tenderness, pedal edema - Back Exam Back exam: absent: CVA tenderness (L), CVA tenderness (R) - Neurological Exam Neurological exam: Alert, Oriented x3 - Psychiatric Exam Psychiatric exam: Normal Affect, Normal Mood - Skin Skin Exam: Dry, Normal Color, Warm Results - Vital Signs Recent Vital Signs: Last Vital Signs Temp 97.8 F 01/22/19 08:29 Pulse 62 01/22/19 17:05 Resp 12 01/22/19 17:05 BP 106/39 L 01/22/19 17:05 Pulse Ox 99 01/22/19 08:29 - Labs Result Diagrams: 01/20/19 22:31 01/20/19 22:31 Labs: Laboratory Results - last 24 hr 01/21/19 01/21/19 01/21/19 06:42 11:53 21:59 POC Glucose (mg/dL) 140 H 146 H 149 H Hemoglobin A1c Triglycerides Cholesterol LDL Cholesterol Direct HDL Cholesterol Vitamin B12 25-OH Vitamin D Total Folate TSH 3rd Generation RPR 01/22/19 01/22/19 01/22/19 06:18 07:32 07:32 POC Glucose (mg/dL) 115 H Hemoglobin A1c Triglycerides 236 H Cholesterol 165 LDL Cholesterol Direct 91 HDL Cholesterol 47 Vitamin B12 425 25-OH Vitamin D Total Folate > 20.0 TSH 3rd Generation 2.38 RPR Nonreactive 01/22/19 01/22/19 07:32 07:32 POC Glucose (mg/dL) Hemoglobin A1c 7.2 H Triglycerides Cholesterol LDL Cholesterol Direct HDL Cholesterol Vitamin B12 25-OH Vitamin D Total 29.2 L Folate TSH 3rd Generation RPR Assessment & Plan - Assessment and Plan (Free Text) Assessment: 78 F w/ Pmhx of CABG, HTN s/p R carotid endarterectomy POD #0 for occlusion and stenosis of carotid artery. In ICU for overnight monitoring Plan: Neuro - A&O x3 - s/p R endaractomy - goal of SBP 100 to 120 - A-line currently in place Cardio - hx of cardiac stents - continue DAPT - maintain SBP 100-120 - nicardipine drip, titrate as needed Resp - vitals WNL - continue to monitor GI - NPO - heart healthy diet in AM Renal - BUN/Cr WNL - f/u AM labs - voiding freely Endo - hx of type 2 diabetes - accuchecks Q6H - ISS Q6H - hypogylcemia protocol Heme - H/H from stable - F/u CBC - F/u CBC @2130 - WBC WNL; afebrile - Continue to monitor - ferros sulfate daily PPx - DVT: lovenox 40 SC daily, SCDs - GI: pepcid 20 mg daily <Jameel Nichole - Last Filed: 01/23/19 15:01> Meds - Medications Medications: Current Medications Aspirin (Aspirin) 325 mg PO DAILY [facility] Last Admin: 01/23/19 09:32 Dose: 325 mg Clopidogrel Bisulfate (Plavix) 75 mg PO DAILY [facility] Last Admin: 01/23/19 09:33 Dose: 75 mg Dextrose (Dextrose 50% Inj) 0 ml IV STAT PRN; Protocol PRN Reason: Hypoglycemia Protocol Dextrose (Glutose 15) 0 gm PO ONCE PRN; Protocol PRN Reason: Hypoglycemia Protocol Enoxaparin Sodium (Lovenox) 40 mg SC DAILY [facility] Last Admin: 01/23/19 09:32 Dose: 40 mg Ferrous Sulfate (Feosol) 325 mg PO DAILY [facility] Last Admin: 01/23/19 09:32 Dose: 325 mg Glimepiride (Amaryl) 4 mg PO DAILY [facility] Last Admin: 01/23/19 09:32 Dose: 4 mg Glucagon (Glucagen Diagnostic Kit) 0 mg IM STAT PRN; Protocol PRN Reason: Hypoglycemia Protocol Hydralazine HCl (Apresoline) 10 mg IVP Q3H PRN PRN Reason: Systolic Blood Pressure Dextrose (Dextrose 5% In Water 1000 Ml) 1,000 mls @ 0 mls/hr IV .Q0M PRN; Protocol PRN Reason: Hypoglycemia Protocol Insulin Aspart (Novolog) [address] [facility]; Protocol Last Admin: 01/23/19 12:00 Dose: 2 u Isosorbide Mononitrate (Imdur) 60 mg PO DAILY [facility] Last Admin: 01/23/19 09:37 Dose: 60 mg Losartan Potassium (Cozaar) 25 mg PO DAILY [facility] Last Admin: 01/23/19 09:33 Dose: 25 mg Metoprolol Tartrate (Lopressor) 12.5 mg PO BID [facility] Last Admin: 01/23/19 09:33 Dose: 12.5 mg Rosuvastatin Calcium (Crestor) 10 mg PO [facility] Last Admin: 01/22/19 21:32 Dose: Not Given Results - Vital Signs Recent Vital Signs: Last Vital Signs Temp 98 F 01/23/19 12:00 Pulse 78 01/23/19 14:22 Resp 18 01/23/19 14:22 BP 160/77 H 01/23/19 14:00 Pulse Ox 98 01/23/19 14:22 - Labs Result Diagrams: 01/23/19 06:31 01/23/19 06:31 Labs: Laboratory Results - last 24 hr 01/22/19 01/22/19 01/23/19 07:32 19:01 01:27 WBC 4.6 L 6.3 RBC 3.29 L 3.43 L Hgb 9.9 L 10.3 L Hct 28.9 L 30.5 L MCV 87.9 89.1 MCH 30.0 30.0 MCHC 34.1 33.7 RDW 13.5 13.8 Plt Count 227 212 MPV 8.2 7.8 Neut % (Auto) 61.1 70.2 Lymph % (Auto) 30.1 21.5 [place] % (Auto) 4.6 5.7 Eos % (Auto) 3.3 2.1 Baso % (Auto) 0.9 0.5 Neut # (Auto) 2.8 4.4 Lymph # (Auto) 1.4 1.3 [place] # (Auto) 0.2 0.4 Eos # (Auto) 0.1 0.1 Baso # (Auto) 0.0 0.0 Sodium Potassium Chloride Carbon Dioxide Anion Gap BUN Creatinine Est GFR ( Amer) Est GFR (Non-Af Amer) Random Glucose Calcium Phosphorus Magnesium Total Bilirubin AST ALT Alkaline Phosphatase Total Protein Albumin Globulin Albumin/Globulin Ratio SANDRA 6 Profile Negative 01/23/19 01/23/19 06:31 06:31 WBC 7.2 RBC 3.37 L Hgb 10.1 L Hct 30.2 L MCV 89.4 MCH 30.0 MCHC 33.5 RDW 13.6 Plt Count 231 MPV 8.4 Neut % (Auto) 66.6 Lymph % (Auto) 24.7 [place] % (Auto) 6.0 Eos % (Auto) 2.4 Baso % (Auto) 0.3 Neut # (Auto) 4.8 Lymph # (Auto) 1.8 [place] # (Auto) 0.4 Eos # (Auto) 0.2 Baso # (Auto) 0.0 Sodium 137 Potassium 3.9 Chloride 104 Carbon Dioxide 26 Anion Gap 11 BUN 24 H Creatinine 1.0 Est GFR ( Amer) > 60 Est GFR (Non-Af Amer) 54 Random Glucose 97 D Calcium 9.4 Phosphorus 3.0 Magnesium 1.6 Total Bilirubin 0.4 AST 22 ALT 21 Alkaline Phosphatase 55 Total Protein 5.7 L Albumin 3.7 Globulin 2.1 L Albumin/Globulin Ratio 1.8 SANDRA 6 Profile Assessment & Plan - Assessment and Plan (Free Text) Plan: Above resident note reviewed and verified. -Patient post procedure -continue cardene to control BP -f/u AM labs - Date & Time Date: 01/22/19 Time: 19:00
[2019-01-22] MEDS ORDERED: Sodium Chloride 0.9% 1,000 ML IV SCH (18:15)
[2019-01-22] MEDS ORDERED: Dextrose 50% SYRINGE Inj (50 ml) IV PRN (18:51)
[2019-01-22] MEDS ORDERED: Glucagon Recombinant 1 mg Inj IM PRN (18:51)
[2019-01-22 19:06] LABS: BASO % 0.9 % (0.0-2.0); EOS # 0.1 K/uL (0.0-0.7); EOS % 3.3 % (0.0-4.0); HEMOGLOBIN 9.9 g/dL (11.0-16.0); LYMPH # 1.4 K/uL (1.0-4.3); LYMPH % 30.1 % (20.0-40.0); MEAN CELL VOLUME 87.9 fL (81.0-99.0); MEAN CORPUSCULAR HGB CONC 34.1 g/dL (33.0-37.0); MEAN PLATELET VOLUME 8.2 fL (7.2-11.7); MONO # 0.2 K/uL (0.0-0.8); MONO % 4.6 % (0.0-10.0); NEUT # 2.8 K/uL (1.8-7.0); NEUT % 61.1 % (50.0-75.0); RBC 3.29 Mil/uL (3.80-5.20); RED CELL DISTRIBUTION WIDTH 13.5 % (11.5-14.5); WHITE BLOOD COUNT 4.6 K/uL (4.8-10.8)
--- NOTE | 2019-01-22 21:20 | CP.PCM.PN ---
Subjective - Date & Time of Evaluation Date of Evaluation: 01/22/19 Time of Evaluation: 10:00 - Subjective Subjective: dictated Objective - Vital Signs/Intake and Output Vital Signs (last 24 hours): Temp Pulse Resp BP Pulse Ox 97.8 F 64 16 123/43 L 99 01/22/19 18:05 01/22/19 20:09 01/22/19 20:09 01/22/19 20:09 01/22/19 20:09 Intake and Output: 01/22/19 01/23/19 18:59 06:59 Intake Total 85 90 Balance 85 90 - Medications Medications: Current Medications Aspirin (Aspirin) 325 mg PO DAILY [facility] Last Admin: 01/22/19 09:20 Dose: 325 mg Clopidogrel Bisulfate (Plavix) 75 mg PO DAILY [facility] Last Admin: 01/22/19 09:20 Dose: 75 mg Dextrose (Dextrose 50% Inj) 0 ml IV STAT PRN; Protocol PRN Reason: Hypoglycemia Protocol Dextrose (Glutose 15) 0 gm PO ONCE PRN; Protocol PRN Reason: Hypoglycemia Protocol Enoxaparin Sodium (Lovenox) 40 mg SC DAILY [facility] Last Admin: 01/22/19 11:05 Dose: Not Given Ferrous Sulfate (Feosol) 325 mg PO DAILY [facility] Last Admin: 01/22/19 11:05 Dose: Not Given Glimepiride (Amaryl) 4 mg PO DAILY [facility] Last Admin: 01/22/19 11:05 Dose: Not Given Glucagon (Glucagen Diagnostic Kit) 0 mg IM STAT PRN; Protocol PRN Reason: Hypoglycemia Protocol Nicardipine HCl 25 mg/ Sodium (Chloride) 250 mls @ 50 mls/hr IV .Q5H [facility]; Protocol Last Admin: 01/22/19 19:23 Dose: Not Given Sodium Chloride (Sodium Chloride 0.9%) 1,000 mls @ 75 mls/hr IV .[id number] [facility] Last Admin: 01/22/19 19:24 Dose: 75 mls/hr Dextrose (Dextrose 5% In Water 1000 Ml) 1,000 mls @ 0 mls/hr IV .Q0M PRN; Protocol PRN Reason: Hypoglycemia Protocol Insulin Aspart (Novolog) 0 unit SC ACHS [facility]; Protocol Last Admin: 01/22/19 21:10 Dose: Not Given Isosorbide Mononitrate (Imdur) 60 mg PO DAILY [facility] Last Admin: 01/22/19 11:05 Dose: Not Given Losartan Potassium (Cozaar) 50 mg PO DAILY [facility] Last Admin: 01/22/19 11:05 Dose: Not Given Metformin HCl (Glucophage) 1,000 mg PO BIDCC [facility] Last Admin: 01/22/19 17:38 Dose: 1,000 mg Nitroglycerin (Nitro-Bid 2% Oint) 1 ea TOP Q6 [facility] Last Admin: 01/22/19 17:51 Dose: Not Given Rosuvastatin Calcium (Crestor) 5 mg PO HS [facility] Last Admin: 01/22/19 21:14 Dose: 5 mg Torsemide (Demadex) 20 mg PO DAILY [facility] Last Admin: 01/22/19 11:05 Dose: Not Given - Labs Labs: 01/22/19 19:01 01/20/19 22:31 PT 11.3 SECONDS (9.7-12.2) 01/20/19 22:31 INR 1.0 01/20/19 22:31 APTT 35 SECONDS (21-34) H 01/20/19 22:31
--- NOTE | 2019-01-23 00:26 | PN ---
DATE: 01/22/2019 SUBJECTIVE: The patient is for OR today. The patient will have carotid endarterectomy. The patient is afebrile. No shortness of breath. Her blood pressure earlier on was high, it was brought down with antihypertensives. The patient is feeing much better. She denies any chest pain, nausea, or vomiting. No cough. No sore throat. PHYSICAL EXAMINATION: VITAL SIGNS: Blood pressure is 123/43, pulse 64, respiratory rate 16, temperature 98. LUNGS: Clear. CARDIOVASCULAR SYSTEM: S1 and S2. Regular. ABDOMEN: Soft, nontender. Bowel sounds are positive. ASSESSMENT: 1. Cerebrovascular accident with carotid stenosis, for operating room. 2. Hypertension. 3. Hyperlipidemia. 4. Type 2 diabetes. PLAN: Medical management, OR. Medically stable. Blood pressure is down. [place] Davenport MD
--- NOTE | 2019-01-23 00:26 | CP.PCM.PN ---
Subjective - Date & Time of Evaluation Date of Evaluation: 01/22/19 Time of Evaluation: 23:00 - Subjective Subjective: She had a right ICA stent followed by Right Internal Carotid Endarterectomy and Angioplasty. She is currently under observation in the ICU Objective - Vital Signs/Intake and Output Vital Signs (last 24 hours): Temp Pulse Resp BP Pulse Ox 97.8 F 57 L 12 134/46 L 99 01/22/19 18:05 01/22/19 23:23 01/22/19 23:23 01/22/19 23:23 01/22/19 23:23 Intake and Output: 01/22/19 01/23/19 18:59 06:59 Intake Total 85 315 Balance 85 315 - Medications Medications: Current Medications Aspirin (Aspirin) 325 mg PO DAILY [facility] Last Admin: 01/22/19 09:20 Dose: 325 mg Clopidogrel Bisulfate (Plavix) 75 mg PO DAILY [facility] Last Admin: 01/22/19 09:20 Dose: 75 mg Dextrose (Dextrose 50% Inj) 0 ml IV STAT PRN; Protocol PRN Reason: Hypoglycemia Protocol Dextrose (Glutose 15) 0 gm PO ONCE PRN; Protocol PRN Reason: Hypoglycemia Protocol Enoxaparin Sodium (Lovenox) 40 mg SC DAILY [facility] Last Admin: 01/22/19 11:05 Dose: Not Given Ferrous Sulfate (Feosol) 325 mg PO DAILY [facility] Last Admin: 01/22/19 11:05 Dose: Not Given Glimepiride (Amaryl) 4 mg PO DAILY [facility] Last Admin: 01/22/19 11:05 Dose: Not Given Glucagon (Glucagen Diagnostic Kit) 0 mg IM STAT PRN; Protocol PRN Reason: Hypoglycemia Protocol Nicardipine HCl 25 mg/ Sodium (Chloride) 250 mls @ 50 mls/hr IV .Q5H [facility]; Protocol Last Admin: 01/22/19 19:23 Dose: Not Given Sodium Chloride (Sodium Chloride 0.9%) 1,000 mls @ 75 mls/hr IV .[id number] [facility] Last Admin: 01/22/19 19:24 Dose: 75 mls/hr Dextrose (Dextrose 5% In Water 1000 Ml) 1,000 mls @ 0 mls/hr IV .Q0M PRN; Protocol PRN Reason: Hypoglycemia Protocol Insulin Aspart (Novolog) 0 unit SC ACHS [facility]; Protocol Last Admin: 01/22/19 21:10 Dose: Not Given Isosorbide Mononitrate (Imdur) 60 mg PO DAILY [facility] Last Admin: 01/22/19 11:05 Dose: Not Given Losartan Potassium (Cozaar) 50 mg PO DAILY [facility] Last Admin: 01/22/19 11:05 Dose: Not Given Metformin HCl (Glucophage) 1,000 mg PO BIDCC [facility] Last Admin: 01/22/19 17:38 Dose: 1,000 mg Nitroglycerin (Nitro-Bid 2% Oint) 1 ea TOP Q6 [facility] Last Admin: 01/22/19 17:51 Dose: Not Given Rosuvastatin Calcium (Crestor) 10 mg PO HS [facility] Last Admin: 01/22/19 21:32 Dose: Not Given Torsemide (Demadex) 20 mg PO DAILY [facility] Last Admin: 01/22/19 11:05 Dose: Not Given - Labs Labs: 01/22/19 19:01 01/20/19 22:31 PT 11.3 SECONDS (9.7-12.2) 01/20/19 22:31 INR 1.0 01/20/19 22:31 APTT 35 SECONDS (21-34) H 01/20/19 22:31 Assessment and Plan (1) Syncope Status: Acute (2) Carotid stenosis, right Status: Acute (3) Chest pain Status: Acute (4) DVT prophylaxis Status: Acute (5) Lower extremity pain Status: Acute (6) Non-STEMI (non-ST elevated myocardial infarction) Status: Acute (7) Peripheral arterial disease Status: Acute (8) Prophylactic measure Status: Acute (9) Seizures Status: Acute (10) TIA (transient ischemic attack) Status: Acute (11) Hypnic headache Status: Acute
[2019-01-23 01:31] LABS: BASO % 0.5 % (0.0-2.0); EOS # 0.1 K/uL (0.0-0.7); EOS % 2.1 % (0.0-4.0); HEMOGLOBIN 10.3 g/dL (11.0-16.0); LYMPH # 1.3 K/uL (1.0-4.3); LYMPH % 21.5 % (20.0-40.0); MEAN CELL VOLUME 89.1 fL (81.0-99.0); MEAN CORPUSCULAR HGB CONC 33.7 g/dL (33.0-37.0); MEAN PLATELET VOLUME 7.8 fL (7.2-11.7); MONO # 0.4 K/uL (0.0-0.8); MONO % 5.7 % (0.0-10.0); NEUT # 4.4 K/uL (1.8-7.0); NEUT % 70.2 % (50.0-75.0); RBC 3.43 Mil/uL (3.80-5.20); RED CELL DISTRIBUTION WIDTH 13.8 % (11.5-14.5); WHITE BLOOD COUNT 6.3 K/uL (4.8-10.8)
[2019-01-23 06:38] LABS: BASO % 0.3 % (0.0-2.0); EOS # 0.2 K/uL (0.0-0.7); EOS % 2.4 % (0.0-4.0); HEMOGLOBIN 10.1 g/dL (11.0-16.0); LYMPH # 1.8 K/uL (1.0-4.3); LYMPH % 24.7 % (20.0-40.0); MEAN CELL VOLUME 89.4 fL (81.0-99.0); MEAN CORPUSCULAR HGB CONC 33.5 g/dL (33.0-37.0); MEAN PLATELET VOLUME 8.4 fL (7.2-11.7); MONO # 0.4 K/uL (0.0-0.8); NEUT # 4.8 K/uL (1.8-7.0); NEUT % 66.6 % (50.0-75.0); RBC 3.37 Mil/uL (3.80-5.20); RED CELL DISTRIBUTION WIDTH 13.6 % (11.5-14.5); WHITE BLOOD COUNT 7.2 K/uL (4.8-10.8)
[2019-01-23 07:12] LABS: ALB/GLOB RATIO 1.8 (1.0-2.1); ALBUMIN 3.7 g/dL (3.5-5.0); ALT/SGPT 21 U/L (9-52); AST/SGOT 22 U/L (14-36); BLOOD UREA NITROGEN 24 mg/dL (7-17); CALCIUM 9.4 mg/dl (8.6-10.4); GFR NON-AFRICAN AMERICAN 54
[2019-01-23] MEDS ORDERED: Nitroglycerin 2% Ointment Foilpak UD TOP ONE (07:36)
[2019-01-23] MEDS: (Novolog) Insulin Aspart, Recombinant 100 u/ml 10 ml vial SC SCH ×2 (07:46→12:00)
[2019-01-23] MEDS: Enoxaparin 40 mg Syringe SC SCH (09:32)
--- NOTE | 2019-01-23 10:06 | CP.CCUPN ---
<Edward Welch M - Last Filed: 01/23/19 13:03> CCU Subjective - Physician Review Subjective (Free Text): Critical care progress note for Dr. Lacy Nichole Patient seen and examined at bedside. No acute events overnight. Nicardipine drip off overnight as patient was normotensive. In AM patient began having elevated BP. Patient has no complaints, denies headaches, vision changes, chest pain, nausea, vomiting, abdominal pain, constipation, diarrhea. CCU Objective - Vital Signs / Intake & Output Vital Signs (Last 4 hours): Vital Signs Temp Pulse Resp BP Pulse Ox 01/23/19 08:24 66 15 01/23/19 08:00 98.5 F 63 17 163/49 H 99 01/23/19 07:26 65 18 163/49 H 01/23/19 07:23 68 13 168/58 H 01/23/19 07:00 66 16 130/46 L 98 01/23/19 06:23 63 14 130/46 L Intake and Output (Last 8hrs): Intake & Output 01/22/19 01/23/19 01/23/19 22:59 06:59 14:59 Intake Total 325 990 175 Output Total 850 Balance 325 140 175 Weight 140 lb Intake: IV 45 Intake, IV Amount 280 600 75 left forearm 280 600 75 Oral 390 100 Output: Urine 850 Urine, Voided 850 Other: # Voids Urine, Voided 0 0 # Bowel Movements 0 0 0 - Physical Exam Head: Positive for: Atraumatic, Normocephalic Pupils: Positive for: PERRL Extroacular Muscles: Positive for: EOMI Conjunctiva: Positive for: Normal Mouth: Positive for: Moist Mucous Membranes. Negative for: Dry Neck: Positive for: Normal Range of Motion Respiratory/Chest: Positive for: Clear to Auscultation, Good Air Exchange. Negative for: Accessory Muscle Use Cardiovascular: Positive for: Murmurs, Normal S1, S2 Abdomen: Positive for: Normal Bowel Sounds. Negative for: Tenderness, Distention Upper Extremity: Positive for: Other (A- line L radial). Negative for: Normal Inspection, Cyanosis Lower Extremity: Positive for: Normal Inspection, Edema Skin: Positive for: Warm, Dry. Negative for: Rashes Psychiatric: Positive for: Alert, Oriented x 3 - Medications Active Medications: Active Medications Generic Name Dose Route Start Last Admin Trade Name Freq PRN Reason Stop Dose Admin Aspirin 325 mg 01/22/19 10:00 01/23/19 09:32 Aspirin PO 325 mg DAILY [facility] Administration Clopidogrel Bisulfate 75 mg 01/21/19 10:00 01/23/19 09:33 Plavix PO 75 mg DAILY [facility] Administration Dextrose 0 ml 01/22/19 18:51 Dextrose 50% Inj IV STAT PRN Hypoglycemia Protocol Protocol Dextrose 0 gm 01/22/19 18:51 Glutose 15 PO ONCE PRN Hypoglycemia Protocol Protocol Enoxaparin Sodium 40 mg 01/21/19 10:00 01/23/19 09:32 Lovenox SC 40 mg DAILY [facility] Administration Ferrous Sulfate 325 mg 01/21/19 10:00 01/23/19 09:32 Feosol PO 325 mg DAILY [facility] Administration Glimepiride 4 mg 01/21/19 10:00 01/23/19 09:32 Amaryl PO 4 mg DAILY [facility] Administration Glucagon 0 mg 01/22/19 18:51 Glucagen Diagnostic Kit IM STAT PRN Hypoglycemia Protocol Protocol Hydralazine HCl 10 mg 01/23/19 09:16 Apresoline IVP Q3H PRN Systolic Blood Pressure Dextrose 1,000 mls @ 0 mls/hr 01/22/19 18:51 Dextrose 5% In Water 1000 Ml IV .Q0M PRN Hypoglycemia Protocol Protocol Per Protocol Insulin Aspart 0 unit 01/20/19 23:30 01/23/19 07:46 Novolog SC Not Given ACHS [facility] Protocol Isosorbide Mononitrate 60 mg 01/21/19 10:00 01/23/19 09:37 Imdur PO 60 mg DAILY [facility] Administration Losartan Potassium 25 mg 01/23/19 10:00 01/23/19 09:33 Cozaar PO 25 mg DAILY [facility] Administration Metoprolol Tartrate 12.5 mg 01/23/19 10:00 01/23/19 09:33 Lopressor PO 12.5 mg BID [facility] Administration Rosuvastatin Calcium 10 mg 01/22/19 21:20 01/22/19 21:32 Crestor PO Not Given HS [facility] - Patient Studies Lab Studies: Lab Studies 01/23/19 01/23/19 01/23/19 Range/Units 06:31 06:31 01:27 WBC 7.2 6.3 (4.8-10.8) K/uL RBC 3.37 L 3.43 L (3.80-5.20) Mil/uL Hgb 10.1 L 10.3 L (11.0-16.0) g/dL Hct 30.2 L 30.5 L (34.0-47.0) % MCV 89.4 89.1 (81.0-99.0) fL MCH 30.0 30.0 (27.0-31.0) pg MCHC 33.5 33.7 (33.0-37.0) g/dL RDW 13.6 13.8 (11.5-14.5) % Plt Count 231 212 (130-400) K/uL MPV 8.4 7.8 (7.2-11.7) fL Neut % (Auto) 66.6 70.2 (50.0-75.0) % Lymph % (Auto) 24.7 21.5 (20.0-40.0) % [place] % (Auto) 6.0 5.7 (0.0-10.0) % Eos % (Auto) 2.4 2.1 (0.0-4.0) % Baso % (Auto) 0.3 0.5 (0.0-2.0) % Neut # (Auto) 4.8 4.4 (1.8-7.0) K/uL Lymph # (Auto) 1.8 1.3 (1.0-4.3) K/uL [place] # (Auto) 0.4 0.4 (0.0-0.8) K/uL Eos # (Auto) 0.2 0.1 (0.0-0.7) K/uL Baso # (Auto) 0.0 0.0 (0.0-0.2) K/uL Sodium 137 (132-148) mmol/L Potassium 3.9 (3.6-5.2) mmol/L Chloride 104 (98-107) mmol/L Carbon Dioxide 26 (22-30) mmol/L Anion Gap 11 (10-20) BUN 24 H (7-17) mg/dL Creatinine 1.0 (0.7-1.2) mg/dL Est GFR ( Amer) > 60 Est GFR (Non-Af Amer) 54 Random Glucose 97 D (65-105) mg/dL Calcium 9.4 (8.6-10.4) mg/dl Phosphorus 3.0 (2.5-4.5) mg/dL Magnesium 1.6 (1.6-2.3) mg/dL Total Bilirubin 0.4 (0.2-1.3) mg/dL AST 22 (14-36) U/L ALT 21 (9-52) U/L Alkaline Phosphatase 55 (38-126) U/L Total Protein 5.7 L (6.3-8.3) g/dL Albumin 3.7 (3.5-5.0) g/dL Globulin 2.1 L (2.2-3.9) gm/dL Albumin/Globulin Ratio 1.8 (1.0-2.1) RPR (NONREACTIVE) 01/22/19 01/22/19 Range/Units 19:01 07:32 WBC 4.6 L (4.8-10.8) K/uL RBC 3.29 L (3.80-5.20) Mil/uL Hgb 9.9 L (11.0-16.0) g/dL Hct 28.9 L (34.0-47.0) % MCV 87.9 (81.0-99.0) fL MCH 30.0 (27.0-31.0) pg MCHC 34.1 (33.0-37.0) g/dL RDW 13.5 (11.5-14.5) % Plt Count 227 (130-400) K/uL MPV 8.2 (7.2-11.7) fL Neut % (Auto) 61.1 (50.0-75.0) % Lymph % (Auto) 30.1 (20.0-40.0) % [place] % (Auto) 4.6 (0.0-10.0) % Eos % (Auto) 3.3 (0.0-4.0) % Baso % (Auto) 0.9 (0.0-2.0) % Neut # (Auto) 2.8 (1.8-7.0) K/uL Lymph # (Auto) 1.4 (1.0-4.3) K/uL [place] # (Auto) 0.2 (0.0-0.8) K/uL Eos # (Auto) 0.1 (0.0-0.7) K/uL Baso # (Auto) 0.0 (0.0-0.2) K/uL Sodium (132-148) mmol/L Potassium (3.6-5.2) mmol/L Chloride (98-107) mmol/L Carbon Dioxide (22-30) mmol/L Anion Gap (10-20) BUN (7-17) mg/dL Creatinine (0.7-1.2) mg/dL Est GFR ( Amer) Est GFR (Non-Af Amer) Random Glucose (65-105) mg/dL Calcium (8.6-10.4) mg/dl Phosphorus (2.5-4.5) mg/dL Magnesium (1.6-2.3) mg/dL Total Bilirubin (0.2-1.3) mg/dL AST (14-36) U/L ALT (9-52) U/L Alkaline Phosphatase (38-126) U/L Total Protein (6.3-8.3) g/dL Albumin (3.5-5.0) g/dL Globulin (2.2-3.9) gm/dL Albumin/Globulin Ratio (1.0-2.1) RPR Nonreactive (NONREACTIVE) Laboratory Results - last 24 hr 01/22/19 01/22/19 01/23/19 07:32 19:01 01:27 WBC 4.6 L 6.3 RBC 3.29 L 3.43 L Hgb 9.9 L 10.3 L Hct 28.9 L 30.5 L MCV 87.9 89.1 MCH 30.0 30.0 MCHC 34.1 33.7 RDW 13.5 13.8 Plt Count 227 212 MPV 8.2 7.8 Neut % (Auto) 61.1 70.2 Lymph % (Auto) 30.1 21.5 [place] % (Auto) 4.6 5.7 Eos % (Auto) 3.3 2.1 Baso % (Auto) 0.9 0.5 Neut # (Auto) 2.8 4.4 Lymph # (Auto) 1.4 1.3 [place] # (Auto) 0.2 0.4 Eos # (Auto) 0.1 0.1 Baso # (Auto) 0.0 0.0 Sodium Potassium Chloride Carbon Dioxide Anion Gap BUN Creatinine Est GFR ( Amer) Est GFR (Non-Af Amer) Random Glucose Calcium Phosphorus Magnesium Total Bilirubin AST ALT Alkaline Phosphatase Total Protein Albumin Globulin Albumin/Globulin Ratio RPR Nonreactive 01/23/19 01/23/19 06:31 06:31 WBC 7.2 RBC 3.37 L Hgb 10.1 L Hct 30.2 L MCV 89.4 MCH 30.0 MCHC 33.5 RDW 13.6 Plt Count 231 MPV 8.4 Neut % (Auto) 66.6 Lymph % (Auto) 24.7 [place] % (Auto) 6.0 Eos % (Auto) 2.4 Baso % (Auto) 0.3 Neut # (Auto) 4.8 Lymph # (Auto) 1.8 [place] # (Auto) 0.4 Eos # (Auto) 0.2 Baso # (Auto) 0.0 Sodium 137 Potassium 3.9 Chloride 104 Carbon Dioxide 26 Anion Gap 11 BUN 24 H Creatinine 1.0 Est GFR ( Amer) > 60 Est GFR (Non-Af Amer) 54 Random Glucose 97 D Calcium 9.4 Phosphorus 3.0 Magnesium 1.6 Total Bilirubin 0.4 AST 22 ALT 21 Alkaline Phosphatase 55 Total Protein 5.7 L Albumin 3.7 Globulin 2.1 L Albumin/Globulin Ratio 1.8 RPR Fingerstick Blood Sugar Results: 141 Review of Systems - Constitutional Constitutional: absent: Fever, Chills, Sweats - EENT Eyes: UNREMARKABLE. absent: Blurred Vision, Diplopia, Irritation Ears: UNREMARKABLE Nose/Mouth/Throat: UNREMARKABLE. absent: Sinus Pressure - Cardiovascular Cardiovascular: UNREMARKABLE. absent: Chest Pain, Edema - Respiratory Respiratory: UNREMARKABLE. absent: Cough, Dyspnea - Gastrointestinal Gastrointestinal: UNREMARKABLE. absent: Constipation, Diarrhea - Genitourinary Genitourinary: UNREMARKABLE. absent: Hematuria, Pyuria - Musculoskeletal Musculoskeletal: UNREMARKABLE. absent: Joint Swelling, Muscle Weakness - Integumentary Integumentary: UNREMARKABLE. absent: Acne, Alopecia - Neurological Neurological: UNREMARKABLE. absent: Headaches, Syncope - Psychiatric Psychiatric: UNREMARKABLE. absent: Confusion, Hallucinations - Endocrine Endocrine: UNREMARKABLE Critical Care Progress Note - Prophylaxis GI Prophylaxis GI: Pepsid - Prophylaxis DVT Prophylaxis DVT: Not Indicated - Nutrition Nutrition: Nutrition Category Date Time Status Heart Healthy Diet [DIET] Diets 01/23/19 Lunch Active Assessment/Plan - Assessment and Plan (Free Text) Assessment: 78 F w/ Pmhx of CABG, HTN s/p R carotid endarterectomy POD #1 for occlusion and stenosis of carotid artery. BP elevated in AM, controlled w/ PO hydralizine and daily medications, stable for downgrade from ICU. Plan: Neuro - A&O x3 - s/p R endaractomy - goal of SBP 100 to 120 - A-line d/c'ed Cardio - hx of cardiac stents - continue aspirin 325 mg daily, plavix 75 mg PO daily - maintain SBP 100-120 - d/c nicardipine drip - cozaar 25 mg PO daily, metoprolol 12.5 mg PO BID, Resp - vitals WNL - continue to monitor GI - heart healthy diet in AM Renal - BUN/Cr WNL - f/u AM labs - voiding freely Endo - hx of type 2 diabetes - accuchecks qhs - ISS qhs - hypogylcemia protocol Heme - H/H stable - WBC WNL; afebrile - Continue to monitor - ferros sulfate daily PPx - DVT: lovenox 40 SC daily, SCDs - GI: pepcid 20 mg daily <Jameel Nichole M - Last Filed: 01/23/19 14:45> CCU Objective - Vital Signs / Intake & Output Vital Signs (Last 4 hours): Vital Signs Pulse Resp BP Pulse Ox 01/23/19 11:00 68 18 180/65 H 98 Intake and Output (Last 8hrs): Intake & Output 01/22/19 01/23/19 01/23/19 22:59 06:59 14:59 Intake Total 325 990 250 Output Total 850 Balance 325 140 250 Weight 140 lb Intake: IV 45 Intake, IV Amount 280 600 75 left forearm 280 600 75 Oral 390 175 Output: Urine 850 Urine, Voided 850 Other: # Voids Urine, Voided 0 0 # Bowel Movements 0 0 0 - Medications Active Medications: Active Medications Generic Name Dose Route Start Last Admin Trade Name Freq PRN Reason Stop Dose Admin Aspirin 325 mg 01/22/19 10:00 01/23/19 09:32 Aspirin PO 325 mg DAILY [facility] Administration Clopidogrel Bisulfate 75 mg 01/21/19 10:00 01/23/19 09:33 Plavix PO 75 mg DAILY [facility] Administration Dextrose 0 ml 01/22/19 18:51 Dextrose 50% Inj IV STAT PRN Hypoglycemia Protocol Protocol Dextrose 0 gm 01/22/19 18:51 Glutose 15 PO ONCE PRN Hypoglycemia Protocol Protocol Enoxaparin Sodium 40 mg 01/21/19 10:00 01/23/19 09:32 Lovenox SC 40 mg DAILY [facility] Administration Ferrous Sulfate 325 mg 01/21/19 10:00 01/23/19 09:32 Feosol PO 325 mg DAILY [facility] Administration Glimepiride 4 mg 01/21/19 10:00 01/23/19 09:32 Amaryl PO 4 mg DAILY [facility] Administration Glucagon 0 mg 01/22/19 18:51 Glucagen Diagnostic Kit IM STAT PRN Hypoglycemia Protocol Protocol Hydralazine HCl 10 mg 01/23/19 09:16 Apresoline IVP Q3H PRN Systolic Blood Pressure Dextrose 1,000 mls @ 0 mls/hr 01/22/19 18:51 Dextrose 5% In Water 1000 Ml IV .Q0M PRN Hypoglycemia Protocol Protocol Per Protocol Insulin Aspart 0 unit 01/20/19 23:30 01/23/19 12:00 Novolog SC 2 u ACHS [facility] Administration Protocol Isosorbide Mononitrate 60 mg 01/21/19 10:00 01/23/19 09:37 Imdur PO 60 mg DAILY [facility] Administration Losartan Potassium 25 mg 01/23/19 10:00 01/23/19 09:33 Cozaar PO 25 mg DAILY [facility] Administration Metoprolol Tartrate 12.5 mg 01/23/19 10:00 01/23/19 09:33 Lopressor PO 12.5 mg BID [facility] Administration Rosuvastatin Calcium 10 mg 01/22/19 21:20 01/22/19 21:32 Crestor PO Not Given HS [facility] - Patient Studies Lab Studies: Lab Studies 01/23/19 01/23/19 01/23/19 Range/Units 06:31 06:31 01:27 WBC 7.2 6.3 (4.8-10.8) K/uL RBC 3.37 L 3.43 L (3.80-5.20) Mil/uL Hgb 10.1 L 10.3 L (11.0-16.0) g/dL Hct 30.2 L 30.5 L (34.0-47.0) % MCV 89.4 89.1 (81.0-99.0) fL MCH 30.0 30.0 (27.0-31.0) pg MCHC 33.5 33.7 (33.0-37.0) g/dL RDW 13.6 13.8 (11.5-14.5) % Plt Count 231 212 (130-400) K/uL MPV 8.4 7.8 (7.2-11.7) fL Neut % (Auto) 66.6 70.2 (50.0-75.0) % Lymph % (Auto) 24.7 21.5 (20.0-40.0) % [place] % (Auto) 6.0 5.7 (0.0-10.0) % Eos % (Auto) 2.4 2.1 (0.0-4.0) % Baso % (Auto) 0.3 0.5 (0.0-2.0) % Neut # (Auto) 4.8 4.4 (1.8-7.0) K/uL Lymph # (Auto) 1.8 1.3 (1.0-4.3) K/uL [place] # (Auto) 0.4 0.4 (0.0-0.8) K/uL Eos # (Auto) 0.2 0.1 (0.0-0.7) K/uL Baso # (Auto) 0.0 0.0 (0.0-0.2) K/uL Sodium 137 (132-148) mmol/L Potassium 3.9 (3.6-5.2) mmol/L Chloride 104 (98-107) mmol/L Carbon Dioxide 26 (22-30) mmol/L Anion Gap 11 (10-20) BUN 24 H (7-17) mg/dL Creatinine 1.0 (0.7-1.2) mg/dL Est GFR ( Amer) > 60 Est GFR (Non-Af Amer) 54 Random Glucose 97 D (65-105) mg/dL Calcium 9.4 (8.6-10.4) mg/dl Phosphorus 3.0 (2.5-4.5) mg/dL Magnesium 1.6 (1.6-2.3) mg/dL Total Bilirubin 0.4 (0.2-1.3) mg/dL AST 22 (14-36) U/L ALT 21 (9-52) U/L Alkaline Phosphatase 55 (38-126) U/L Total Protein 5.7 L (6.3-8.3) g/dL Albumin 3.7 (3.5-5.0) g/dL Globulin 2.1 L (2.2-3.9) gm/dL Albumin/Globulin Ratio 1.8 (1.0-2.1) SANDRA 6 Profile (NEGATIVE) 01/22/19 01/22/19 Range/Units 19:01 07:32 WBC 4.6 L (4.8-10.8) K/uL RBC 3.29 L (3.80-5.20) Mil/uL Hgb 9.9 L (11.0-16.0) g/dL Hct 28.9 L (34.0-47.0) % MCV 87.9 (81.0-99.0) fL MCH 30.0 (27.0-31.0) pg MCHC 34.1 (33.0-37.0) g/dL RDW 13.5 (11.5-14.5) % Plt Count 227 (130-400) K/uL MPV 8.2 (7.2-11.7) fL Neut % (Auto) 61.1 (50.0-75.0) % Lymph % (Auto) 30.1 (20.0-40.0) % [place] % (Auto) 4.6 (0.0-10.0) % Eos % (Auto) 3.3 (0.0-4.0) % Baso % (Auto) 0.9 (0.0-2.0) % Neut # (Auto) 2.8 (1.8-7.0) K/uL Lymph # (Auto) 1.4 (1.0-4.3) K/uL [place] # (Auto) 0.2 (0.0-0.8) K/uL Eos # (Auto) 0.1 (0.0-0.7) K/uL Baso # (Auto) 0.0 (0.0-0.2) K/uL Sodium (132-148) mmol/L Potassium (3.6-5.2) mmol/L Chloride (98-107) mmol/L Carbon Dioxide (22-30) mmol/L Anion Gap (10-20) BUN (7-17) mg/dL Creatinine (0.7-1.2) mg/dL Est GFR ( Amer) Est GFR (Non-Af Amer) Random Glucose (65-105) mg/dL Calcium (8.6-10.4) mg/dl Phosphorus (2.5-4.5) mg/dL Magnesium (1.6-2.3) mg/dL Total Bilirubin (0.2-1.3) mg/dL AST (14-36) U/L ALT (9-52) U/L Alkaline Phosphatase (38-126) U/L Total Protein (6.3-8.3) g/dL Albumin (3.5-5.0) g/dL Globulin (2.2-3.9) gm/dL Albumin/Globulin Ratio (1.0-2.1) SANDRA 6 Profile Negative (NEGATIVE) Laboratory Results - last 24 hr 01/22/19 01/22/19 01/23/19 07:32 19:01 01:27 WBC 4.6 L 6.3 RBC 3.29 L 3.43 L Hgb 9.9 L 10.3 L Hct 28.9 L 30.5 L MCV 87.9 89.1 MCH 30.0 30.0 MCHC 34.1 33.7 RDW 13.5 13.8 Plt Count 227 212 MPV 8.2 7.8 Neut % (Auto) 61.1 70.2 Lymph % (Auto) 30.1 21.5 [place] % (Auto) 4.6 5.7 Eos % (Auto) 3.3 2.1 Baso % (Auto) 0.9 0.5 Neut # (Auto) 2.8 4.4 Lymph # (Auto) 1.4 1.3 [place] # (Auto) 0.2 0.4 Eos # (Auto) 0.1 0.1 Baso # (Auto) 0.0 0.0 Sodium Potassium Chloride Carbon Dioxide Anion Gap BUN Creatinine Est GFR ( Amer) Est GFR (Non-Af Amer) Random Glucose Calcium Phosphorus Magnesium Total Bilirubin AST ALT Alkaline Phosphatase Total Protein Albumin Globulin Albumin/Globulin Ratio SANDRA 6 Profile Negative 01/23/19 01/23/19 06:31 06:31 WBC 7.2 RBC 3.37 L Hgb 10.1 L Hct 30.2 L MCV 89.4 MCH 30.0 MCHC 33.5 RDW 13.6 Plt Count 231 MPV 8.4 Neut % (Auto) 66.6 Lymph % (Auto) 24.7 [place] % (Auto) 6.0 Eos % (Auto) 2.4 Baso % (Auto) 0.3 Neut # (Auto) 4.8 Lymph # (Auto) 1.8 [place] # (Auto) 0.4 Eos # (Auto) 0.2 Baso # (Auto) 0.0 Sodium 137 Potassium 3.9 Chloride 104 Carbon Dioxide 26 Anion Gap 11 BUN 24 H Creatinine 1.0 Est GFR ( Amer) > 60 Est GFR (Non-Af Amer) 54 Random Glucose 97 D Calcium 9.4 Phosphorus 3.0 Magnesium 1.6 Total Bilirubin 0.4 AST 22 ALT 21 Alkaline Phosphatase 55 Total Protein 5.7 L Albumin 3.7 Globulin 2.1 L Albumin/Globulin Ratio 1.8 SANDRA 6 Profile Critical Care Progress Note - Nutrition Nutrition: Nutrition Category Date Time Status Heart Healthy Diet [DIET] Diets 01/23/19 Lunch Active Assessment/Plan - Assessment and Plan (Free Text) Plan: Patient seen and examined at bedside. POD #1 -off cardene overnight -d.c arterial line -restart home medications gradually -PT/OT -Patient remains hemodynamically stable - Date & Time Date: 01/23/19 Time: 14:45
--- NOTE | 2019-01-23 12:31 | CP.PCM.PN ---
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 PmHx CAD,MIx2, CABGx4, HTN, HLD,DM. Admitted for near syncope and dizziness. CTA from November admission with MRI/MRA demonstrated high grade stenosis of the origin of the right internal carotid artery estimated at 80% using NASCET criteria, mild stenosis of the right M1 middle cerebral artery. Pt denies dizziness, weakness, numbness, headache. Objective - Vital Signs/Intake and Output Vital Signs (last 24 hours): Temp Pulse Resp BP Pulse Ox 98.5 F 68 18 180/65 H 98 01/23/19 08:00 01/23/19 11:00 01/23/19 11:00 01/23/19 11:00 01/23/19 11:00 Intake and Output: 01/23/19 01/23/19 06:59 18:59 Intake Total 1230 250 Output Total 850 Balance 380 250 - Medications Medications: Current Medications Aspirin (Aspirin) 325 mg PO DAILY [facility] Last Admin: 01/23/19 09:32 Dose: 325 mg Clopidogrel Bisulfate (Plavix) 75 mg PO DAILY [facility] Last Admin: 01/23/19 09:33 Dose: 75 mg Dextrose (Dextrose 50% Inj) 0 ml IV STAT PRN; Protocol PRN Reason: Hypoglycemia Protocol Dextrose (Glutose 15) 0 gm PO ONCE PRN; Protocol PRN Reason: Hypoglycemia Protocol Enoxaparin Sodium (Lovenox) 40 mg SC DAILY [facility] Last Admin: 01/23/19 09:32 Dose: 40 mg Ferrous Sulfate (Feosol) 325 mg PO DAILY [facility] Last Admin: 01/23/19 09:32 Dose: 325 mg Glimepiride (Amaryl) 4 mg PO DAILY [facility] Last Admin: 01/23/19 09:32 Dose: 4 mg Glucagon (Glucagen Diagnostic Kit) 0 mg IM STAT PRN; Protocol PRN Reason: Hypoglycemia Protocol Hydralazine HCl (Apresoline) 10 mg IVP Q3H PRN PRN Reason: Systolic Blood Pressure Dextrose (Dextrose 5% In Water 1000 Ml) 1,000 mls @ 0 mls/hr IV .Q0M PRN; Protocol PRN Reason: Hypoglycemia Protocol Insulin Aspart (Novolog) 0 unit SC ACHS [facility]; Protocol Last Admin: 01/23/19 07:46 Dose: Not Given Isosorbide Mononitrate (Imdur) 60 mg PO DAILY [facility] Last Admin: 01/23/19 09:37 Dose: 60 mg Losartan Potassium (Cozaar) 25 mg PO DAILY [facility] Last Admin: 01/23/19 09:33 Dose: 25 mg Metoprolol Tartrate (Lopressor) 12.5 mg PO BID [facility] Last Admin: 01/23/19 09:33 Dose: 12.5 mg Rosuvastatin Calcium (Crestor) 10 mg PO HS [facility] Last Admin: 01/22/19 21:32 Dose: Not Given - Labs Labs: 01/23/19 06:31 01/23/19 06:31 PT 11.3 SECONDS (9.7-12.2) 01/20/19 22:31 INR 1.0 01/20/19 22:31 APTT 35 SECONDS (21-34) H 01/20/19 22:31 - Constitutional Appears: Well - Head Exam Head Exam: ATRAUMATIC - Eye Exam Eye Exam: EOMI, Normal appearance, PERRL Pupil Exam: NORMAL ACCOMODATION - Rectal Exam Rectal Exam: Deferred - Extremities Exam Extremities Exam: Full ROM - Neurological Exam Neurological Exam: Alert, Awake, CN II-XII Intact, Normal Gait, Oriented x3 Neuro motor strength exam: Left Upper Extremity: 5, Right Upper Extremity: 5, Left Lower Extremity: 5, Right Lower Extremity: 5 - Psychiatric Exam Psychiatric exam: Normal Affect Assessment and Plan - Assessment and Plan (Free Text) Assessment: NEUROLOGICAL EXAM: General: awake, sitting OOB in chair Mental Status: alert and oriented to person, place, and time, follows commands, regards on both sides Speech: no dysarthria, speech fluent Cranial Nerves: PERRL, BTT bilaterally, EOMI, no facial symmetry, tongue midline Motor: 5/5 left and right upper and lower extremities Sensory: intact bilaterally Coordination: [id number] no dysmetria Gait: deferred is a 78 year old female admitted for syncope/near syncope, dizziness. 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 Post op day 1 right ICA stent no neurological deficits noted. Right groin s/p access site with dsg D&I no ecchymosis noted. Plan: 1-Pt stable from neuro interventional for discharge home 2-Continue ASA 325 and Plavix 75 daily 3-Follow up with in 2 weeks 4-If I can be of further assistance please contact Post-op assessment and plan 35min
[2019-01-23 16:14] VITALS: TEMP 97.9; O2SAT 98
--- NOTE | 2019-01-23 16:41 | CP.PCM.PN ---
Subjective - Date & Time of Evaluation Date of Evaluation: 01/23/19 Time of Evaluation: 16:40 - Subjective Subjective: PATIENT SEEN AND EXAMINED AT THE BEDSIDE Objective - Vital Signs/Intake and Output Vital Signs (last 24 hours): Temp Pulse Resp BP Pulse Ox 97.9 F 72 20 157/50 H 98 01/23/19 16:00 01/23/19 16:00 01/23/19 16:00 01/23/19 16:00 01/23/19 16:00 Intake and Output: 01/23/19 01/23/19 06:59 18:59 Intake Total 1230 450 Output Total 850 Balance 380 450 - Medications Medications: Current Medications Aspirin (Aspirin) 325 mg PO DAILY [facility] Last Admin: 01/23/19 09:32 Dose: 325 mg Clopidogrel Bisulfate (Plavix) 75 mg PO DAILY [facility] Last Admin: 01/23/19 09:33 Dose: 75 mg Dextrose (Dextrose 50% Inj) 0 ml IV STAT PRN; Protocol PRN Reason: Hypoglycemia Protocol Dextrose (Glutose 15) 0 gm PO ONCE PRN; Protocol PRN Reason: Hypoglycemia Protocol Enoxaparin Sodium (Lovenox) 40 mg SC DAILY [facility] Last Admin: 01/23/19 09:32 Dose: 40 mg Ferrous Sulfate (Feosol) 325 mg PO DAILY [facility] Last Admin: 01/23/19 09:32 Dose: 325 mg Glimepiride (Amaryl) 4 mg PO DAILY [facility] Last Admin: 01/23/19 09:32 Dose: 4 mg Glucagon (Glucagen Diagnostic Kit) 0 mg IM STAT PRN; Protocol PRN Reason: Hypoglycemia Protocol Hydralazine HCl (Apresoline) 10 mg IVP Q3H PRN PRN Reason: Systolic Blood Pressure Dextrose (Dextrose 5% In Water 1000 Ml) 1,000 mls @ 0 mls/hr IV .Q0M PRN; Pr otocol PRN Reason: Hypoglycemia Protocol Insulin Aspart (Novolog) 0 unit SC [facility]; Protocol Last Admin: 01/23/19 12:00 Dose: 2 u Isosorbide Mononitrate (Imdur) 60 mg PO DAILY [facility] Last Admin: 01/23/19 09:37 Dose: 60 mg Losartan Potassium (Cozaar) 25 mg PO DAILY [facility] Last Admin: 01/23/19 09:33 Dose: 25 mg Metoprolol Tartrate (Lopressor) 12.5 mg PO BID [facility] Last Admin: 01/23/19 09:33 Dose: 12.5 mg Rosuvastatin Calcium (Crestor) 10 mg PO HS [facility] Last Admin: 01/22/19 21:32 Dose: Not Given - Labs Labs: 01/23/19 06:31 01/23/19 06:31 PT 11.3 SECONDS (9.7-12.2) 01/20/19 22:31 INR 1.0 01/20/19 22:31 APTT 35 SECONDS (21-34) H 01/20/19 22:31 Assessment and Plan - Assessment and Plan (Free Text) Assessment: FOLLOW UP WITH DR BALL OR PMD IN ONE WEEK -----CALL FOR APPOINTMENT FOLLOW UP ITH DR TEIXEIRA IN HIS OFFICE -----CALL FOR APPOINTMENT CONTINUE HOME MEDICATION NEW PRESCRIPTION GIVEN LOSARTAN 25 MG PO DAILY PLAVIX 75 MG PO DAILY ASPIRIN 325 MG PO DAILY LOPRESSOR 12.5 MG PO BID STOP TAKING CLONIDINE RESUME METFORMIN ON 01/24/[address] BALL OR GO TO THE EMERGENCY ROOM IF SYMPTOM RETURN ON WORSENING
--- NOTE | 2019-01-23 17:04 | PN ---
DATE: 01/23/2019 SUBJECTIVE: The patient underwent right internal carotid artery origin stenting. She denies any dizziness, headache or blurry vision. She denies any shortness of breath or chest pain. PHYSICAL EXAMINATION: VITAL SIGNS: Blood pressure 180/65, heart rate 68, temperature 98.5, respirations 20. HEENT: Normocephalic. CHEST: Clear. HEART: S1 and S2 regular. ABDOMEN: Soft. EXTREMITIES: No edema. LABORATORY DATA: SMA-7: Sodium is 137, potassium 3.9, chloride 14, CO2 of 28, glucose 97, BUN 24, creatinine 1. Today's hemoglobin and hematocrit 10.1 and 30.2. White count and platelet count are within normal limit. ASSESSMENT: 1. Status post right internal carotid artery stenosis. 2. Coronary artery disease status post coronary artery bypass surgery. 3. Hypertension and diabetes mellitus. RECOMMENDATIONS: Continue current hydralazine 10 mg hours p.r.n. and continue aspirin 325 mg once a day, Crestor 10 mg once a day, Cozaar 25 mg once a day, Imdur 60 mg once a day, Lopressor 12.5 mg twice a day and Plavix 75 mg once a day. Kuldip Vincent MD
[2019-01-23 17:58] VITALS: BP 148/70; PULSE 74; RESP 21
--- NOTE | 2019-01-23 18:19 | CP.PCM.PN ---
Subjective - Date & Time of Evaluation Date of Evaluation: 01/23/19 Time of Evaluation: 18:08 - Subjective Subjective: Patient did well and her Blood Pressure has improved, as the Nicardipine was discontinued over night. She is discharged home and will be seen as an outpatient. Objective - Vital Signs/Intake and Output Vital Signs (last 24 hours): Temp Pulse Resp BP Pulse Ox 97.9 F 74 21 148/70 98 01/23/19 16:00 01/23/19 17:00 01/23/19 17:00 01/23/19 17:00 01/23/19 17:00 Intake and Output: 01/23/19 01/23/19 06:59 18:59 Intake Total 1230 550 Output Total 850 300 Balance 380 250 - Labs Labs: 01/23/19 06:31 01/23/19 06:31 PT 11.3 SECONDS (9.7-12.2) 01/20/19 22:31 INR 1.0 01/20/19 22:31 APTT 35 SECONDS (21-34) H 01/20/19 22:31 Assessment and Plan (1) Syncope Assessment & Plan: It is believed to be related to her right Internal carotid artery stenosis. She was operated and had a Right carotid artery stent and a carotid endarterectomy and angioplasty on the right side She did well after her surgery. Status: Acute (2) Carotid stenosis, right Assessment & Plan: Operated as explained. Status: Acute (3) Chest pain Assessment & Plan: Is not a major problem after the surgery Status: Acute (4) DVT prophylaxis Status: Acute (5) Lower extremity pain Assessment & Plan: She needs further work up after discharge. 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 Status: Acute (10) TIA (transient ischemic attack) Status: Acute (11) Hypnic headache Assessment & Plan: She will need to have a sleep study after discharge. Status: Chronic
--- NOTE | 2019-01-24 06:43 | DS ---
DISCHARGE DIAGNOSES: Internal carotid artery occlusion with cerebrovascular accident, hypertension, hyperlipidemia. HISTORY OF PRESENT ILLNESS: This is an elderly female with history of stroke. She was admitted in [facility] a week ago, and she was found to have internal carotid artery stenosis, and she needs carotid endarterectomy. The patient was evaluated. She was seen by Cardiology, cleared by Cardiology, and subsequently the patient was started on aspirin, statin, and the patient underwent carotid endarterectomy. Postoperatively, her symptoms improved. She did therapy. She tolerated well. She is ambulating, symptom free. She is for discharge. PHYSICAL EXAMINATION: LUNGS: Clear. CARDIOVASCULAR: S1, S2, regular. ABDOMEN: Soft. PLAN: Discharge the patient. Los Davenport MD
--- NOTE | 2019-01-26 07:49 | DS ---
DISCHARGE DIAGNOSES: 1. Known coronary chest pain. 2. Alcohol withdrawal, delirium tremens. 3. Hypertension. 4. Gastroenteritis. This is an elderly white female with history of alcoholism, anxiety, depression, who is noncompliant with her diet, medications, and followup. She was admitted to the hospital with chest pain, generalized weakness, persistent diarrhea, failing to respond to outpatient treatment, failing to respond to emergency room treatment. The patient was initially placed in the hospital as observation, later on her electrolytes were imbalanced. She was dehydrated, weak, fatigued, with low blood pressure, low potassium, low magnesium. The patient was admitted from observation to inpatient, and the patient was given IV fluids, electrolytes replacement, cardiology evaluation, and the patient did well. The patient is for discharge. She is not a candidate for any cardiac workup. Her nausea, vomiting, diarrhea, and her weakness have subsided. Her electrolyte imbalance is corrected. She is for discharge. Los Davenport MD
--- NOTE | 2019-01-26 10:16 | EEG ---
DATE: 01/23/2019 The record is obtained for history of syncope, rule out seizures. The patient had the record while awake. The record was symmetrically equal on both sides with a velocity 8 to 9 cycles per seconds. The waves are fairly formed, fairly organized with posterior distribution, moderate in amplitude, reactive to eye opening by attenuation. There was no abnormal discharge. No spike. No polyspike. No sharp wave, no focal slowing, and no paroxysmal discharges. The record did not show any changes on . The hyperventilation was omitted. There were no periods of drowsiness and there were no periods of sleep. There were eye movement artifact, electrode artifact, and muscle movement artifact. In summary, this is a normal awake EEG. Clinical correlation is recommended. Cherelle Reaves MD
== END 2019-01-23 18:01 | disposition home or self-care (01) | DRG 36 ==
LOC: C.ER 21:35 → C.9E 22:57 → C.6T 23:47 → C.9I 01-22 15:20
PROVIDERS: ADMIT Internal Medicine; ATTEND Internal Medicine
PROC: 037K3DZ Dilation of Right Internal Carotid Artery with Intraluminal Device, Percutaneous Approach (ICD-10-PCS; principal; 2019-01-22)
DX: I65.21 Occlusion and stenosis of right carotid artery (principal); R55 Syncope and collapse; E78.00 Pure hypercholesterolemia, unspecified; I10 Essential (primary) hypertension; I25.10 Atherosclerotic heart disease of native coronary artery without angina pectoris; Z95.1 Presence of aortocoronary bypass graft; Z86.73 Personal history of transient ischemic attack (TIA), and cerebral infarction without residual deficits; E11.51 Type 2 diabetes mellitus with diabetic peripheral angiopathy without gangrene; Z90.49 Acquired absence of other specified parts of digestive tract; I45.19 Other right bundle-branch block; I27.20 Pulmonary hypertension, unspecified